=== PATIENT | male | born 1980 | race Caucasian/White ===

== ENCOUNTER 2016-11-17 11:55 | Outpatient (CLI) | payer MEDICARE, OTHER ==
[~2016-11-17 11:55] MED LIST: BACLOFEN10 MG ORAL; CEPHALEXIN500 MG ORAL; CIPRO250 MG ORAL; METHADONE H5 MG/5 M1 PO; METHADONE HCL10 MG PO; MS CONTIN100 MG ORAL; OXYBUTYNIN CHLO10 MG PO; OXYBUTYNIN CHLO15 MG PO
== END 2016-11-17 13:55 | disposition home or self-care (01) ==
LOC: CAR 11:55
DX: I49.9 Cardiac arrhythmia, unspecified (principal)
CPT/HCPCS: 93005

== ENCOUNTER 2017-12-29 12:36 | Outpatient (CLI) | payer MEDICARE, OTHER ==
--- NOTE | 2017-12-29 17:11 | Cardiology Report ---
APPROVED REPORT EKG Measurement Heart [id number] Normal sinus rhythm Normal ECG
== END 2017-12-29 14:36 | disposition home or self-care (01) ==
LOC: CAR 12:36
DX: G82.20 Paraplegia, unspecified (principal); R25.2 Cramp and spasm
CPT/HCPCS: 93005

== ENCOUNTER 2018-01-01 05:55 | Emergency (ER) | payer MEDICARE, OTHER ==
[~2018-01-01] VITALS: Ht 162.6 cm; Wt 99.8 kg
[2018-01-01 06:16] VITALS: BP 135/88
--- NOTE | 2018-01-01 06:29 | Emergency Room Report ---
History of Present Illness General Chief Complaint: Multiple Trauma/Fall Source: Patient Present Illness HPI Patient 37-year-old male presented after fall out of his wheelchair. Patient denied loss of consciousness. He reports having a prior history of incomplete T10 paraplegia. The patient stated he felt a pop to the left lower extremity. The patient intermittently self caths. He denies any headache.The patient is normally unable to move his left lower extremity and is wheelchair-bound. Allergies: Coded Allergies: ACETAMINOPHEN (Verified Allergy, Unknown, 01/26/16) HYDROCODONE (Verified Allergy, Unknown, 01/26/16) Patient History Past Medical History: see triage record Reviewed Nursing Documentation: PMH: Agreed; PSxH: Agreed Nursing Documentation-PMH Hx Hypertension: Yes Hx Cancer: No Hx Neurological Problems: Yes - T 12- PARAPLEGIC SINCE 2002 Review of Systems All Other Systems: negative except mentioned in HPI Physical Exam Vital Signs Date Time Temp Pulse Resp B/P (MAP) Pulse Ox O2 Delivery O2 Flow Rate FiO2 01/01/18 06:01 98.1 83 16 135/88 97 Room Air General Appearance: alert, GCS 15, obese, Chronically Ill ENT: normal ENT inspection, hearing grossly normal Neck: normal inspection, full range of motion, supple Respiratory: normal inspection, chest non-tender, lungs clear Cardiovascular #1: normal inspection Gastrointestinal: non tender, soft Musculoskeletal: decreased range of mation Neurologic: alert, oriented x3, responsive, paper cone grader III-XII nml as tested, motor weakness - bilateral lower extremity Psychiatric: normal inspection Skin: other - left leg anterior skin lesion, no bruising Medical Decision Making Diagnostic Impression: Primary Impression: Tibia/fibula fracture ER Course Patient presented for right leg pain. Differential diagnosis included but was not limited to fracture, dislocation, vascular injury among others. Xray imaging showed a comminuted left ankle fracture. Patient was placed in a splint. Patient was vascularly intact after splinting. Patient was advised to keep leg elevated. He was advised to follow up with Orthopedics as soon as possible. Last Vital Signs Date Time Temp Pulse Resp B/P (MAP) Pulse Ox O2 Delivery O2 Flow Rate FiO2 01/01/18 06:16 83 16 Room Air 01/01/18 06:16 98.0 135/88 97 Status: improved Disposition: HOME, SELF-CARE Condition: Stable Scripts Cephalexin* (KEFLEX*) 500 Mg Capsule 500 MG ORAL EVERY 6 HOURS, #28 CAP Prov: Richard Mata MD 01/01/18 Ibuprofen* (MOTRIN*) 600 Mg Tablet 600 MG ORAL THREE TIMES A DAY, #30 TAB 0 Refills Prov: Richard Mata MD 01/01/18 Referrals: Karri Laird MD (PCP) Richard Mata MD Jan 01, 2018 06:29
[2018-01-01] MEDS ORDERED: IBUPROFEN600 MG ORAL (08:53)
[2018-01-01] MEDS ORDERED: CEPHALEXIN500 MG ORAL (08:53)
[2018-01-01 09:08] VITALS: BP 129/83
[2018-01-01 09:10] VITALS: BP 129/83
--- NOTE | 2018-01-01 13:03 | Diagnostic Imaging Report ---
Indication: Foot pain Technique: 3 views left foot Comparison: none Findings: No acute foot fractures. There is a fracture of the distal tibia and fibula noted on the lateral view. No dislocations. There is degenerative change of the first metatarsophalangeal joint. Impression: No evidence of foot fracture Positive for distal tibial and fibular fracture-see separate ankle report
--- NOTE | 2018-01-01 13:46 | Diagnostic Imaging Report ---
Indication: Ankle pain Technique: 3 views of the left ankle Comparison: none Findings: There is a severely comminuted fracture of the distal tibia, with approximately 1 cm posterior displacement, several centimeters of override. There is an associated severely comminuted fracture of the distal fibula. It is uncertain whether the tibial fracture involves the articular surface.. No dislocations Impression: Positive for distal fibular and tibial fractures
--- NOTE | 2018-01-01 13:47 | Diagnostic Imaging Report ---
Indication: Reason For Exam: PAIN Technique: 2 views of the left tibia and fibula Comparison: 03/01/2009 Findings: Surgical hardware is again seen reducing old healed proximal tibial fracture. There is a severely comminuted fracture of the distal tibia. There is a severely comminuted fracture of the distal fibula. Impression: Positive for comminuted distal tibial and fibular fractures Evidence of old healed injury and postsurgical change
== END 2018-01-01 09:12 | disposition home or self-care (01) ==
LOC: EMR 06:21
DX: S82.252A Displaced comminuted fracture of shaft of left tibia, initial encounter for closed fracture (principal); S82.452A Displaced comminuted fracture of shaft of left fibula, initial encounter for closed fracture; W05.0XXA Fall from non-moving wheelchair, initial encounter; Y92.009 Unspecified place in unspecified non-institutional (private) residence as the place of occurrence of the external cause; Z88.6 Allergy status to analgesic agent; I10 Essential (primary) hypertension; G82.20 Paraplegia, unspecified
CPT/HCPCS: 99284

== ENCOUNTER 2018-02-28 22:38 | Emergency (ER) | payer MEDICARE, OTHER ==
[~2018-02-28] VITALS: Ht 162.6 cm; Wt 104.3 kg
[~2018-02-28 22:38] MED LIST changes: +IBUPROFEN600 MG ORAL
[2018-02-28 23:07] VITALS: BP 121/76
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
[2018-02-28] MEDS ORDERED: cefTRIAXone 1 GM in NS 55 ML IVPB ONE (23:15)
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
--- NOTE | 2018-02-28 23:18 | NUR ---
ED Nurse Note: Blood and urine sample collected and sent to lab.
--- NOTE | 2018-02-28 23:19 | NUR ---
ED Nurse Note: Meds given as ordered.
[2018-02-28 23:48] LABS: BILIRUBIN, URINE NEGATIVE (NEGATIVE); GLUCOSE, URINE (UA) NEGATIVE (NEGATIVE); KETONES,URINE NEGATIVE (NEGATIVE); LEUKOCYTE ESTERASE ,URINE 3+ (NEGATIVE); NITRITE,URINE POSITIVE (NEGATIVE); PH,URINE 6.5 (4.5-8.0); PROTEIN,URINE 1+ (NEGATIVE); UROBILINOGEN,URINE 4 MG/DL (0.0-1.0)
[2018-02-28 23:52] LABS: APPEARANCE,URINE CLOUDY; COLOR,URINE YELLOW
[2018-02-28 23:58] LABS: BASOPHILS % (AUTO) 0.7 % (0.0-2.0); EOSINOPHILS % (AUTO) 3.4 % (0.0-3.0); HEMATOCRIT 28.3 % (42.0-52.0); HEMOGLOBIN 9.1 G/DL (14.2-18.0); LYMPHOCYTES % (AUTO) 16.5 % (20.0-45.0); MEAN CORPUSCULAR VOLUME 76 FL (80-99); MONOCYTES % (AUTO) 5.4 % (1.0-10.0); PLATELET COUNT 293 K/UL (150-450); RED BLOOD COUNT 3.72 M/UL (4.70-6.10); RED CELL DISTRIBUTION WIDTH 15.7 % (11.6-14.8)
[2018-03-01 00:09] LABS: ANION GAP 10 mmol/L (5-15); BLOOD UREA NITROGEN 6 mg/dL (7-18); CALCIUM 8.9 MG/DL (8.5-10.1); CARBON DIOXIDE 32 MMOL/L (21-32); CHLORIDE 94 MMOL/L (98-107); CREATININE 0.8 MG/DL (0.55-1.30); SODIUM 135 MMOL/L (136-145)
[2018-03-01 00:14] LABS: POTASSIUM 2.7 MMOL/L (3.5-5.1)
[2018-03-01] MEDS ORDERED: PERCOCET 5-3251 EACH ORAL (00:28)
[2018-03-01] MEDS ORDERED: LEVAQUIN500 MG ORAL (00:28)
[2018-03-01] MEDS ORDERED: Morphine Sulfate 4mg/ml Inj (IV USE ONLY) IVP ONE (00:30)
[2018-03-01 01:05] VITALS: BP 123/73
--- NOTE | 2018-03-01 01:05 | NUR ---
ED Nurse Note: Pt has seen by Dr. Saldivar, all orders carried out. D/c instruction and prescription given to Pt and verbalized understanding. IV/ID band removed. Pt d/c from ED with steady gait, accompanied by his family and with his wheelchair.
== END 2018-03-01 01:05 | disposition home or self-care (01) ==
LOC: EMR 23:19
DX: N39.0 Urinary tract infection, site not specified (principal); B96.89 Other specified bacterial agents as the cause of diseases classified elsewhere; D64.9 Anemia, unspecified; E87.6 Hypokalemia; R80.9 Proteinuria, unspecified; G82.20 Paraplegia, unspecified
CPT/HCPCS: 36415; 80048; 81001; 85025; 87086; 87181; 96365; 96375; 99284; J0696; J2270; 96361; 96374; J8499

== ENCOUNTER 2018-03-08 11:17 | Outpatient (RCR) | payer MEDICARE, OTHER ==
[~2018-03-08] VITALS: Ht 162.6 cm; Wt 104.3 kg
[~2018-03-08 11:17] MED LIST changes: +LEVAQUIN500 MG ORAL; +PERCOCET 5-3251 EACH ORAL
== END 2018-03-11 | disposition home or self-care (01) ==
LOC: WCC 11:17
DX: L89.324 Pressure ulcer of left buttock, stage 4 (principal); L89.623 Pressure ulcer of left heel, stage 3; L97.529 Non-pressure chronic ulcer of other part of left foot with unspecified severity; L97.513 Non-pressure chronic ulcer of other part of right foot with necrosis of muscle; L89.510 Pressure ulcer of right ankle, unstageable; L03.116 Cellulitis of left lower limb; G82.20 Paraplegia, unspecified; Z90.81 Acquired absence of spleen; F17.200 Nicotine dependence, unspecified, uncomplicated
CPT/HCPCS: 11043; 11046

== ENCOUNTER 2018-12-21 13:10 | Inpatient (IN) | payer MEDICARE, OTHER ==
[2018-12-21] VITALS (13 sets, daily range): BP systolic 82–115; BP diastolic 45–73
[~2018-12-21] VITALS: Ht 167.6 cm; Wt 78.3 kg
[2018-12-21] MEDS ORDERED: Naloxone 1mg/ml 2ml ONE (13:13)
[2018-12-21] MEDS ORDERED: Vancomycin 1.5 GM in NS 275 ML IVPB ONE (13:30)
[2018-12-21] MEDS ORDERED: Cefepime HCl 2 GM in NS 110 ML IV SCH (13:30)
[2018-12-21] MEDS ORDERED: GABAPENTIN300 MG ORAL (13:34)
[2018-12-21] MEDS ORDERED: MEGESTROL400 MG/11 PO (13:34)
[2018-12-21] MEDS ORDERED: MAGNESIUM400 M1 PO (13:34)
[2018-12-21] MEDS ORDERED: ASCORBIC ACID500 MG ORAL (13:34)
[2018-12-21] MEDS ORDERED: RISPERDAL1 MG PO (13:34)
[2018-12-21] MEDS ORDERED: MIRTAZAPINE15 M3 ORAL (13:34)
[2018-12-21] MEDS ORDERED: ATIVAN1 MG ORAL (13:34)
[2018-12-21] MEDS ORDERED: TRAMADOL HCL50 MG ORAL (13:34)
[2018-12-21] MEDS ORDERED: VITAMIN B-1100 MG ORAL (13:34)
[2018-12-21] MEDS ORDERED: ZOFRAN4 M3 ORAL (13:34)
[2018-12-21] MEDS ORDERED: FAMOTIDINE20 MG ORAL (13:34)
[2018-12-21] MEDS ORDERED: ACIDOPHILUS-PE1 EAC1 PO (13:34)
[2018-12-21] MEDS ORDERED: MULTIVITAMINS1 EAC8 ORAL (13:34)
[2018-12-21] MEDS ORDERED: ZOLPIDEM TARTRAT5 MG ORAL (13:42)
[2018-12-21] MEDS ORDERED: TYLENOL EXTRA500 MG ORAL (13:42)
[2018-12-21 14:01] LABS: BASOPHILS % (AUTO) 0.6 % (0.0-2.0); EOSINOPHILS % (AUTO) 0.1 % (0.0-3.0); HEMOGLOBIN 14.5 G/DL (14.2-18.0); LYMPHOCYTES % (AUTO) 7.4 % (20.0-45.0); MEAN CORPUSCULAR VOLUME 91 FL (80-99); MONOCYTES % (AUTO) 7.4 % (1.0-10.0); NEUTROPHILS % (AUTO) 84.5 % (45.0-75.0); PLATELET COUNT 412 K/UL (150-450); RED BLOOD COUNT 5.15 M/UL (4.70-6.10); RED CELL DISTRIBUTION WIDTH 14.6 % (11.6-14.8); WHITE BLOOD COUNT 15.8 K/UL (4.8-10.8)
[2018-12-21 14:02] LABS: APPEARANCE,URINE SLIGHTLY CLOUDY; BILIRUBIN, URINE NEGATIVE (NEGATIVE); GLUCOSE, URINE (UA) NEGATIVE (NEGATIVE); KETONES,URINE 1+ (NEGATIVE); LEUKOCYTE ESTERASE ,URINE 3+ (NEGATIVE); NITRITE,URINE NEGATIVE (NEGATIVE); PH,URINE 5 (4.5-8.0); PROTEIN,URINE 3+ (NEGATIVE); UROBILINOGEN,URINE 1 MG/DL (0.0-1.0)
[2018-12-21 14:08] LABS: COLOR,URINE RED
[2018-12-21] MEDS ORDERED: Lidocaine 1% MPF 10mg/ml 5ml ONE ×2 (14:14→14:24)
[2018-12-21 14:15] LABS: INR 1.1 (0.9-1.1)
[2018-12-21 14:17] LABS: ANION GAP 14 mmol/L (5-15); BLOOD UREA NITROGEN 36 mg/dL (7-18); CALCIUM 10.1 MG/DL (8.5-10.1); CARBON DIOXIDE 16 MMOL/L (21-32); CHLORIDE 107 MMOL/L (98-107); CREATININE 1.2 MG/DL (0.55-1.30); SODIUM 137 MMOL/L (136-145)
[2018-12-21 14:30] LABS: ALANINE AMINOTRANSFERASE 17 U/L (12-78); ALBUMIN 1.9 G/DL (3.4-5.0); ALBUMIN/GLOBULIN RATIO 0.3 (1.0-2.7); ALKALINE PHOSPHATASE 199 U/L (46-116); ASPARTATE AMINO TRANSFERASE 25 U/L (15-37); BILIRUBIN,TOTAL 1.2 MG/DL (0.2-1.0); CKMB 1.7 NG/ML (0.0-3.6); CREATINE KINASE 36 U/L (26-308); PHOSPHORUS 7.6 MG/DL (2.5-4.9)
[2018-12-21] MEDS ORDERED: Naloxone 1mg/ml 2ml IVP ONE (14:30)
--- NOTE | 2018-12-21 14:42 | Diagnostic Imaging Report ---
Indication: Dyspnea Comparison: 02/07/2009 A single view chest radiograph was obtained. Findings: Lung volumes are low. There is evidence of mild bilateral lower lobe atelectasis. Endotracheal tube is 3 cm above the araseli in good position. Heart size is normal. IMPRESSION: Basal atelectasis. Endotracheal tube in good position
[2018-12-21] MEDS ORDERED: Heparin1,000 units/500ml Premix(Conc:2 units/ml) IV ONE (14:45)
[2018-12-21] MEDS ORDERED: Lidocaine 1% Plain 30 ml INJ ONE (14:45)
[2018-12-21 14:52] LABS: BILIRUBIN,DIRECT 0.8 MG/DL (0.0-0.3)
--- NOTE | 2018-12-21 15:10 | Emergency Room Report ---
History of Present Illness General Chief Complaint: Altered Mental Status Source: Family Member, EMS Present Illness HPI Patient is a 38-year-old male presented after syncopal episode. Patient was brought in by EMS. He had a syncopal episode while attempted to have a bowel movement. He had noted to be decreased responsive since the episode. He had been noted to have fever. He had prior history of chronic indwelling Dye as well as T10 paraplegia. Patient had been unresponsive on initial evaluation. He was noted to be full code. He had prior history of chronic decubitus ulcer to his sacral area. He had been receiving treatment at this facility. Prior lengthy hospitalization at [facility] which she had some myocardial injury. He had previous tracheostomy.History is limited by patient's altered mental status. Allergies: Coded Allergies: ACETAMINOPHEN (Verified Allergy, Unknown, 01/26/16) HYDROCODONE (Verified Allergy, Unknown, 01/26/16) Patient History Limited by: medical condition Past Medical History: see triage record PMH Narrative T10 paraplegia decubitus ulcer chronic urinary tract infection sepsis myocardial injury due to sepsis. Social History: Reports: smoking Reviewed Nursing Documentation: PMH: Agreed; PSxH: Agreed Nursing Documentation-PMH Past Medical History: No History, Except For Hx Hypertension: Yes Hx Cancer: No Hx Gastrointestinal Problems: Yes - Spleen removel History Of Psychiatric Problem: Yes - anxiety Hx Neurological Problems: Yes - T 12- PARAPLEGIC SINCE 2002 Hx Seizures: Yes Review of Systems All Other Systems: limited - by mental status and acuity Physical Exam Vital Signs Date Time Temp Pulse Resp B/P (MAP) Pulse Ox O2 Delivery O2 Flow Rate FiO2 12/21/18 12:59 98.8 136 19 90/61 (71) 97 Room Air 12/21/18 13:15 50 General Appearance: severe distress, lethargic, Chronically Ill Head: normocephalic Eyes: bilateral eye other - Pupils 3 mm bilaterally ENT: dry mucus membranes Neck: limited range of motion, other - Tracheostomy scar Respiratory: chest non-tender, lungs clear, normal breath sounds Cardiovascular #1: normal inspection Gastrointestinal: normal inspection, non tender, soft Musculoskeletal: other - Motor weakness bilateral lower extremities Neurologic: other - Somnolent moves right upper extremity Skin: other - ulcer Procedures Critical Care Time Critical Care Time Patient had a critical medical condition which untreated could potentially result in life or limb threatening injury. Total critical care time excluding procedures approximately 45 minutes. Intubation Intubation : Consent: Emergent Intubation Method: orotracheal Tube Size (cm): 7.0 Medications: Etomidate Breath Sounds after Intubation: equal Intubation Complications: no complications Post Intubation Xray: Yes Attempts: Other - two Patient Tolerated: Well Complications: None Progress Mac 4 blade, initially difficulty with epiglottis blocking vollecula. Cords visualized well and ETT secured at 22cm 7-0 Medical Decision Making Diagnostic Impression: Primary Impression: Acute respiratory failure Additional Impressions: Paraplegia Urinary tract bacterial infections Severe sepsis Decubitus ulcer ER Course Patient presented for acute onset of syncope and altered mental status. Some evidence of acute febrile illness suggestive of urinary tract infection. Differential diagnosis include was not limited to sepsis, pneumonia, intracranial hemorrhage, among others. Because of complexity of patient's case laboratory tests and imaging studies were ordered. Patient was noted to have initially altered mental status. Patient was given IV fluids as well as IV antibiotics. Patient's Dye catheter was noted to be containing very cloudy urine initially. This was changed. A central venous catheter was attempted without any success. Patient was noted to continue to be hypotensive and was started on IV fluids as well as IV antibiotics. Radiology was contacted for PICC line placement. Dr. Maximo Awad was contacted for inpatient management due to covering physician for Dr. Storm. Dr. Awad agreed to accept the patient. Labs Test 12/21/18 13:40 12/21/18 14:45 White Blood Count 15.8 K/UL (4.8-10.8) Red Blood Count 5.15 M/UL (4.70-6.10) Hemoglobin 14.5 G/DL (14.2-18.0) Hematocrit 47.0 % (42.0-52.0) Mean Corpuscular Volume 91 FL (80-99) Mean Corpuscular Hemoglobin 28.1 PG (27.0-31.0) Mean Corpuscular Hemoglobin Concent 30.8 G/DL (32.0-36.0) Red Cell Distribution Width 14.6 % (11.6-14.8) Platelet Count 412 K/UL (150-450) Mean Platelet Volume 5.1 FL (6.5-10.1) Neutrophils (%) (Auto) 84.5 % (45.0-75.0) Lymphocytes (%) (Auto) 7.4 % (20.0-45.0) Monocytes (%) (Auto) 7.4 % (1.0-10.0) Eosinophils (%) (Auto) 0.1 % (0.0-3.0) Basophils (%) (Auto) 0.6 % (0.0-2.0) Prothrombin Time 11.4 SEC (9.30-11.50) Prothromb Time International Ratio 1.1 (0.9-1.1) Activated Partial Thromboplast Time 27 SEC (23-33) Urine Color Red Urine Appearance Slightly cloudy Urine pH 5 (4.5-8.0) Urine Specific [place] 1.010 (1.005-1.035) Urine Protein 3+ (NEGATIVE) Urine Glucose (UA) Negative (NEGATIVE) Urine Ketones 1+ (NEGATIVE) Urine Blood 5+ (NEGATIVE) Urine Nitrite Negative (NEGATIVE) Urine Bilirubin Negative (NEGATIVE) Urine Urobilinogen 1 MG/DL (0.0-1.0) Urine Leukocyte Esterase 3+ (NEGATIVE) Urine RBC Tntc /HPF (0 - 0) Urine WBC 30-40 /HPF (0 - 0) Urine Squamous Epithelial Cells Occasional /LPF Urine Bacteria Occasional /HPF (NONE) Sodium Level 137 MMOL/L (136-145) Potassium Level 4.0 MMOL/L (3.5-5.1) Chloride Level 107 MMOL/L (98-107) Carbon Dioxide Level 16 MMOL/L (21-32) Anion Gap 14 mmol/L (5-15) Blood Urea Nitrogen 36 mg/dL (7-18) Creatinine 1.2 MG/DL (0.55-1.30) Estimat Glomerular Filtration Rate > 60 mL/min (>60) Glucose Level 133 MG/DL (74-106) Calcium Level 10.1 MG/DL (8.5-10.1) Phosphorus Level 7.6 MG/DL (2.5-4.9) Magnesium Level 3.2 MG/DL (1.8-2.4) Total Bilirubin 1.2 MG/DL (0.2-1.0) Direct Bilirubin 0.8 MG/DL (0.0-0.3) Aspartate Amino Transf (AST/SGOT) 25 U/L (15-37) Alanine Aminotransferase (ALT/SGPT) 17 U/L (12-78) Alkaline Phosphatase 199 U/L (46-116) Total Creatine Kinase 36 U/L (26-308) Creatine Kinase MB 1.7 NG/ML (0.0-3.6) Creatine Kinase MB Relative Index 4.7 Troponin I 0.000 ng/mL (0.000-0.056) Pro-B-Type Natriuretic Peptide 257 pg/mL (0-125) Total Protein 7.6 G/DL (6.4-8.2) Albumin 1.9 G/DL (3.4-5.0) Globulin 5.7 g/dL Albumin/Globulin Ratio 0.3 (1.0-2.7) EKG Diagnostic Results Rate: normal Rhythm: NSR ST Segments: no acute changes Rhythm Strip Diag. Results EP Interpretation: yes Rhythm: no PVC's, no ectopy, other - Sinus tachycardia Chest X-Ray Diagnostic Results Chest X-Ray Diagnostic Results : Chest X-Ray Ordered: Yes # of Views/Limited/Complete: 1 View Indication: Shortness of Breath EP Interpretation: No Interpretation: no consolidation, no effusion, no pneumothorax, no acute cardiopulmonary disease Impression: No acute disease Electronically Signed by: Electronically signed by Dr. Richard Mata M.D. Last Vital Signs Date Time Temp Pulse Resp B/P (MAP) Pulse Ox O2 Delivery O2 Flow Rate FiO2 12/21/18 14:48 121 23 50 12/21/18 14:08 100.6 82/65 100 Non-Rebreather Status: unchanged Disposition: ADMITTED INPATIENT Condition: Critical Referrals: NON PHYSICIAN (PCP) Richard Mata MD Dec 21, 2018 15:10
[2018-12-21] MEDS ORDERED: Albuterol/Ipratropium 3ml neb HHN PRN (16:00)
[2018-12-21] MEDS ORDERED: Miralax 17gm pkt ORAL PRN (16:00)
--- NOTE | 2018-12-21 16:48 | Diagnostic Imaging Report ---
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 The left upper extremity was prepped with alcohol. All elements of maximal sterile barrier technique were followed including usage of a cap, mask, sterile gown, sterile gloves, hand hygiene and a large sterile sheet. Sonographic evaluation of the upper extremity was performed demonstrating a patent and compressible brachial vein. Access was obtained under real-time ultrasound guidance (with utilization of sterile gel and sterile probe cover) and digital image was saved and archived. An .018 wire was introduced. Needle exchanged for a 5 [place] peel-away sheath. Measurements were obtained. A 5 [place] dual-lumen Power PICC line catheter was cut to 40 cm and introduced over the wire. Peel-away sheath and wire were removed.Catheter was secured to the skin using 2-0 Prolene suture. Both ports aspirate and flush easily. Post procedure chest x-ray demonstrates good position of the PICC line catheter within the right atrium. Impression: Successful placement of an upper extremity PICC line catheter
--- NOTE | 2018-12-21 17:10 | Diagnostic Imaging Report ---
Indication: Headache Technique: Contiguous 5 mm thick transaxial imaging of the head obtained in a Siemens Sensation [address] scanner. Soft tissue and bone windows generated. Automatic Exposure Control was utilized. Total Dose length Product (DLP): [address] Dose Index Volume (CTDIvol): 62.7 mGy Comparison: none Findings: There is mild prominence of the ventricles, basal cisterns, and cerebral sulci consistent with atrophy. Mild, nonspecific, white matter hypoattenuation is noted throughout the brain consistent with chronic small vessel disease. There is no midline shift, edema, acute hemorrhage, mass effect, or abnormal extra-axial fluid collections. Bones are unremarkable. Impression: No acute intracranial bleed, mass effect or edema. Mild atrophy of the brain. Nonspecific white matter hypoattenuation probably due to chronic small vessel disease. The CT scanner at [facility] is accredited by the [employer] and the scans are performed using dose optimization techniques as appropriate to a performed exam including Automatic Exposure control.
[2018-12-21] MEDS ORDERED: Amikacin Rx to dose MISC PRN (19:15)
[2018-12-21] MEDS: Ertapenem 1 GM in NS 55 ML IV SCH (20:00)
[2018-12-21] MEDS: Dyna-Hex 2% Top Sol 2oz TOPIC SCH (20:00)
[2018-12-21] MEDS ORDERED: Dyna-Hex 2% Top Sol 2oz TOPIC SCH (20:00)
[2018-12-21] MEDS: Amikacin 1,200 MG in NS 275 ML IV SCH (20:40)
[2018-12-21] MEDS: Heparin 5000 units/ml inj SUBQ SCH (20:41)
[2018-12-21] MEDS ORDERED: Vancomycin 1 GM in D5W 275 ML IV SCH (23:45)
[2018-12-22] VITALS (50 sets, daily range): BP systolic 79–135; BP diastolic 40–97
[2018-12-22] MEDS: Vancomycin 1.25gm/NS Premix IVPB SCH ×2 (03:09→14:52)
[2018-12-22] MEDS: LORazepam Inj 2mg/ml 1ml IV PRN ×6 (03:09→22:12)
[2018-12-22 06:26] LABS: BASOPHILS % (AUTO) 0.6 % (0.0-2.0); EOSINOPHILS % (AUTO) 1.2 % (0.0-3.0); HEMATOCRIT 32.8 % (42.0-52.0); HEMOGLOBIN 10.2 G/DL (14.2-18.0); LYMPHOCYTES % (AUTO) 7.8 % (20.0-45.0); MEAN CORPUSCULAR VOLUME 91 FL (80-99); MONOCYTES % (AUTO) 7.7 % (1.0-10.0); NEUTROPHILS % (AUTO) 82.7 % (45.0-75.0); PLATELET COUNT 314 K/UL (150-450); RED BLOOD COUNT 3.62 M/UL (4.70-6.10); RED CELL DISTRIBUTION WIDTH 14.4 % (11.6-14.8); WHITE BLOOD COUNT 14.4 K/UL (4.8-10.8)
[2018-12-22] MEDS ORDERED: Rocuronium Bromide 50mg/5ml Inj IV ONE (06:36)
[2018-12-22] MEDS ORDERED: Etomidate 40mg/20ml Inj IV ONE (06:36)
[2018-12-22 07:43] LABS: ALANINE AMINOTRANSFERASE 13 U/L (12-78); ALBUMIN 1.4 G/DL (3.4-5.0); ALBUMIN/GLOBULIN RATIO 0.3 (1.0-2.7); ALKALINE PHOSPHATASE 132 U/L (46-116); ANION GAP 15 mmol/L (5-15); ASPARTATE AMINO TRANSFERASE 22 U/L (15-37); BILIRUBIN,DIRECT 0.7 MG/DL (0.0-0.3); BLOOD UREA NITROGEN 29 mg/dL (7-18); CALCIUM 8.3 MG/DL (8.5-10.1); CARBON DIOXIDE 12 MMOL/L (21-32); CHLORIDE 122 MMOL/L (98-107); CREATININE 0.8 MG/DL (0.55-1.30); SODIUM 149 MMOL/L (136-145)
[2018-12-22 07:49] LABS: POTASSIUM 2.5 MMOL/L (3.5-5.1)
[2018-12-22] MEDS: Heparin 5000 units/ml inj SUBQ SCH ×2 (09:00→21:00)
[2018-12-22] MEDS: Pantoprazole Inj IVP SCH (09:02)
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
--- NOTE | 2018-12-22 11:50 | Diagnostic Imaging Report ---
Indication: Dyspnea Comparison: 12/21/2018 A single view chest radiograph was obtained. Findings: Bilateral lower lobe the atelectasis demonstrated with lung volumes that remain low. A left PICC line is been placed. The tip is projected over the right atrium. Endotracheal tube remains satisfactory in position. IMPRESSION: PICC line in good position
[2018-12-22] MEDS: D5 1/2NS 1,000 ML IV SCH ×2 (11:56→21:00)
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
--- NOTE | 2018-12-22 13:18 | Diagnostic Imaging Report ---
Indication: Abdominal pain Technique: Grayscale and duplex Doppler imaging of the abdomen performed. Comparison: None Findings: Study is very limited due to bowel gas. Patient is also unstable in a cooperative. There is a questionable stone within the gallbladder. Sonographic Duran's is negative. There is no pericholecystic fluid or wall thickening. The spleen is enlarged measuring about 13-14 cm. There is no hydronephrosis identified. There is no obvious ascites. The aorta, pancreas, IVC mostly obscured. The liver is largely obscured but that is visualized appears grossly unremarkable. IMPRESSION: Very limited evaluation. Mild splenomegaly. Question of gallstones.
--- NOTE | 2018-12-22 14:28 | Diagnostic Imaging Report ---
Indication: Abdominal pain Comparison: None Single view of the abdomen obtained Findings: Bowel gas pattern is nonspecific. NG tube is present in good position. No mass, ectopic calcifications, or abnormal gas collections are identified. The bones are unremarkable. Impression: No acute findings
[2018-12-22] MEDS ORDERED: NS 275ml ONE (16:03)
[2018-12-22] MEDS ORDERED: Tubing IV Secondary IV ONE (16:03)
--- NOTE | 2018-12-22 16:04 | Cardiology Report ---
APPROVED REPORT EXAM: Two-dimensional and M-mode echocardiogram with Doppler and color Doppler. INDICATION LV FUNCTION M-Mode DIMENSIONS IVSd0.8 (0.7-1.1cm)Left Atrium (MM)3.0 (1.6-4.0cm) LVDd4.0 (3.5-5.6cm)Aortic Root3.5 (2.0-3.7cm) PWd0.8 (0.7-1.1cm)Aortic Cusp Exc.1.8 (1.5-2.0cm) IVSs1.0 cm LVDs2.8 (2.5-4.0cm) PWs0.6 cm Normal left ventricular chamber size, systolic function and wall motion. Left ventricular ejection fraction estimated to be 60-65 %. No evidence of left ventricular hypertrophy . No evidence of pericardial effusion. All other cardiac chamber sizes are within normal limits. Focal aortic valve sclerosis with adequate cusp excursion. Thickened mitral valve leaflets with normal excursion. Mitral annulus and aortic root calcification. Normal pulmonic valve structure. Normal tricuspid valve structure. IVC at normal size with physiologic collapse. A color flow and spectral Doppler study was performed and revealed: No aortic regurgitation.. Trace mitral regurgitation. Mitral inflow indicates normal left ventricular diastolic function Mild tricuspid regurgitation. Tricuspid systolic velocities suggests peak right ventricular systolic pressure of 27mmHg.
--- NOTE | 2018-12-22 19:21 | History & Physical ---
History and Physical History & Physicial Dictated for Int Med-Dr Awad no. [id number]. Jama Moreau MD Dec 22, 2018 19:21
[2018-12-22] MEDS: Ertapenem 1 GM in NS 55 ML IV SCH (20:00)
[2018-12-22] MEDS: Dyna-Hex 2% Top Sol 2oz TOPIC SCH (20:00)
[2018-12-22] MEDS: Amikacin 1,200 MG in NS 275 ML IV SCH (21:00)
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
[2018-12-23] VITALS (55 sets, daily range): BP systolic 82–145; BP diastolic 43–95
[2018-12-23] MEDS: LORazepam Inj 2mg/ml 1ml IV PRN ×3 (03:54→23:37)
[2018-12-23 04:34] LABS: BASOPHILS % (AUTO) 0.4 % (0.0-2.0); HEMATOCRIT 27.8 % (42.0-52.0); HEMOGLOBIN 8.9 G/DL (14.2-18.0); LYMPHOCYTES % (AUTO) 10.7 % (20.0-45.0); MEAN CORPUSCULAR VOLUME 89 FL (80-99); MONOCYTES % (AUTO) 7.6 % (1.0-10.0); NEUTROPHILS % (AUTO) 79.4 % (45.0-75.0); PLATELET COUNT 290 K/UL (150-450); RED BLOOD COUNT 3.12 M/UL (4.70-6.10); RED CELL DISTRIBUTION WIDTH 14.2 % (11.6-14.8); WHITE BLOOD COUNT 13.3 K/UL (4.8-10.8)
[2018-12-23 04:42] LABS: CREATINE KINASE 27 U/L (26-308); GAMMA GLUTAMYL TRANSPEPTIDASE 126 U/L (5-85)
[2018-12-23 04:46] LABS: IRON 33 ug/dL (50-175); TOTAL IRON BINDING CAPACITY 93 ug/dL (250-450)
[2018-12-23 04:50] LABS: % IRON SATURATION 35 % (15-50)
[2018-12-23 04:51] LABS: ALANINE AMINOTRANSFERASE 11 U/L (12-78); ALBUMIN 1.3 G/DL (3.4-5.0); ALBUMIN/GLOBULIN RATIO 0.3 (1.0-2.7); ALKALINE PHOSPHATASE 112 U/L (46-116); ANION GAP 11 mmol/L (5-15); ASPARTATE AMINO TRANSFERASE 15 U/L (15-37); BILIRUBIN,TOTAL 0.4 MG/DL (0.2-1.0); BLOOD UREA NITROGEN 17 mg/dL (7-18); CALCIUM 8.8 MG/DL (8.5-10.1); CARBON DIOXIDE 15 MMOL/L (21-32); CHLORIDE 119 MMOL/L (98-107); CHOLESTEROL 76 MG/DL (< 200); CREATININE 0.8 MG/DL (0.55-1.30); FERRITIN 1205 NG/ML (8-388); HDL CHOLESTEROL 15 MG/DL (40-60); PHOSPHORUS 2.5 MG/DL (2.5-4.9); SODIUM 145 MMOL/L (136-145); TRIGLYCERIDES 69 MG/DL (30-150)
[2018-12-23 04:53] LABS: POTASSIUM 2.7 MMOL/L (3.5-5.1)
[2018-12-23] MEDS: D5 1/2NS 1,000 ML IV SCH ×2 (08:16→13:49)
[2018-12-23] MEDS: Pantoprazole Inj IVP SCH (09:16)
[2018-12-23] MEDS: Heparin 5000 units/ml inj SUBQ SCH ×2 (09:22→20:43)
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
[2018-12-23] MEDS: Hydrocortisone 100mg Inj IV SCH ×3 (11:23→20:41)
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
--- NOTE | 2018-12-23 12:40 | Diagnostic Imaging Report ---
Indication: Dyspnea Comparison: 12/22/2018 A single view chest radiograph was obtained. Findings: Tubes and lines are stable. Basilar atelectasis demonstrated. Lung volumes remain low. Heart size is stable. IMPRESSION: No change from the prior day
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
--- NOTE | 2018-12-23 16:48 | Internal Med Progress Note ---
Subjective Date of Service: Dec 23, 2018 Physician Name Jama Moreau Attending Physician Maximo Awad MD Current Medications Medications (Trade) Dose Ordered Sig/Thomas Route PRN Reason Start Time Stop Time Status Last Admin Dose Admin Albuterol/ Ipratropium (Albuterol/ Ipratropium) 3 ml Q4H PRN HHN Shortness of Breath 12/21/18 16:00 12/26/18 15:59 Amikacin Protocol (Amikacin pharmacy to dose) 1 ea DAILY PRN MISC PER RX PROTOCOL 12/21/18 19:15 01/20/19 19:14 Amikacin Sulfate 1200 mg/Sodium Chloride 279.8 ml @ 279.8 mls/ hr Q36H IV 12/24/18 09:00 12/31/18 08:59 Chlorhexidine Gluconate (Megan-Hex 2%) 1 applic DAILY@2000 TOPIC 12/21/18 20:00 01/20/19 19:59 12/22/18 20:00 Dextrose/Sodium Chloride 1,000 ml @ 50 mls/hr Q20H IV 12/23/18 12:33 01/22/19 12:32 12/23/18 13:49 Ertapenem 1 gm/ Sodium Chloride 55 ml @ 110 mls/hr Q24H IV 12/21/18 20:00 12/26/18 19:59 12/22/18 20:00 Fentanyl Citrate 1000 mcg/Sodium Chloride 100 ml @ 0 mls/hr Q24H IV 12/23/18 13:15 12/30/18 13:14 12/23/18 14:56 Heparin Sodium (Porcine) (Heparin 5000 units/ml) 5,000 units EVERY 12 HOURS SUBQ 12/21/18 21:00 01/20/19 20:59 12/23/18 09:22 Hydrocortisone (Solu-CORTEF) 100 mg EVERY 8 HOURS IV 12/23/18 09:45 12/24/18 22:01 12/23/18 14:54 Lorazepam (Ativan 2mg/ml 1ml) 2 mg Q2H PRN IV For Anxiety 12/21/18 16:00 12/28/18 15:59 12/23/18 09:16 Norepinephrine Bitartrate 4 mg/ Dextrose 250 ml @ 0 mls/hr Q24H IV 12/21/18 19:00 01/20/19 18:59 12/22/18 09:15 Ondansetron HCl (Zofran) 4 mg Q6H PRN IVP Nausea & Vomiting 12/21/18 16:00 01/20/19 15:59 Pantoprazole (Protonix) 40 mg DAILY IVP 12/22/18 09:00 01/21/19 08:59 12/23/18 09:16 Polyethylene Glycol (Miralax) 17 gm DAILYPRN PRN ORAL Constipation 12/21/18 16:00 01/20/19 15:59 Potassium Chloride 100 ml @ 50 mls/hr Q2H IVPB 12/23/18 09:00 12/23/18 18:59 12/23/18 16:38 Vancomycin HCl (Vanco rx to dose) 1 ea DAILY PRN MISC PER RX PROTOCOL 12/21/18 19:15 01/20/19 19:14 Allergies: Coded Allergies: ACETAMINOPHEN (Verified Allergy, Unknown, 01/26/16) HYDROCODONE (Verified Allergy, Unknown, 01/26/16) ROS Limited/Unobtainable: Yes Subjective 38 YO T-12 paraplegic admitted with respiratory failure. Now UTI and sepsis. Intubated and sedated. Cover for Int Med-DR Awad. ICU Objective Last Vital Signs Date Time Temp Pulse Resp B/P (MAP) Pulse Ox O2 Delivery O2 Flow Rate FiO2 12/23/18 15:22 137 29 30 12/23/18 14:56 Mechanical Ventilator 12/23/18 11:30 111/71 (84) 100 12/23/18 08:00 97.4 Laboratory Tests Test 12/23/18 02:00 12/23/18 04:00 12/23/18 09:35 Lactic Acid Level 0.40 mmol/L (0.4-2.0) Ammonia < 10 umol/L (11-32) L Vancomycin Level Trough 31.1 ug/mL (5.0-12.0) H White Blood Count 13.3 K/UL (4.8-10.8) H Red Blood Count 3.12 M/UL (4.70-6.10) L Hemoglobin 8.9 G/DL (14.2-18.0) L Hematocrit 27.8 % (42.0-52.0) L Mean Corpuscular Volume 89 FL (80-99) Mean Corpuscular Hemoglobin 28.4 PG (27.0-31.0) Mean Corpuscular Hemoglobin Concent 31.9 G/DL (32.0-36.0) L Red Cell Distribution Width 14.2 % (11.6-14.8) Platelet Count 290 K/UL (150-450) Mean Platelet Volume 5.3 FL (6.5-10.1) L Neutrophils (%) (Auto) 79.4 % (45.0-75.0) H Lymphocytes (%) (Auto) 10.7 % (20.0-45.0) L Monocytes (%) (Auto) 7.6 % (1.0-10.0) Eosinophils (%) (Auto) 2.0 % (0.0-3.0) Basophils (%) (Auto) 0.4 % (0.0-2.0) Sodium Level 145 MMOL/L (136-145) Potassium Level 2.7 MMOL/L (3.5-5.1) *L Chloride Level 119 MMOL/L (98-107) H Carbon Dioxide Level 15 MMOL/L (21-32) L Anion Gap 11 mmol/L (5-15) Blood Urea Nitrogen 17 mg/dL (7-18) Creatinine 0.8 MG/DL (0.55-1.30) Estimat Glomerular Filtration Rate > 60 mL/min (>60) Glucose Level 108 MG/DL (74-106) H Hemoglobin A1c 4.9 % (4.3-6.0) Uric Acid 4.4 MG/DL (2.6-7.2) Calcium Level 8.8 MG/DL (8.5-10.1) Phosphorus Level 2.5 MG/DL (2.5-4.9) Magnesium Level 1.8 MG/DL (1.8-2.4) Iron Level 33 ug/dL (50-175) L Total Iron Binding Capacity 93 ug/dL (250-450) L Percent Iron Saturation 35 % (15-50) Unsaturated Iron Binding 60 ug/dL (112-346) L Ferritin 1205 NG/ML (8-388) H Total Bilirubin 0.4 MG/DL (0.2-1.0) Gamma Glutamyl Transpeptidase 126 U/L (5-85) H Aspartate Amino Transf (AST/SGOT) 15 U/L (15-37) Alanine Aminotransferase (ALT/SGPT) 11 U/L (12-78) L Alkaline Phosphatase 112 U/L (46-116) Total Creatine Kinase 27 U/L (26-308) Troponin I 0.000 ng/mL (0.000-0.056) C-Reactive Protein, Quantitative 31.0 mg/dL (0.00-0.90) H Pro-B-Type Natriuretic Peptide 2487 pg/mL (0-125) H Total Protein 5.6 G/DL (6.4-8.2) L Albumin 1.3 G/DL (3.4-5.0) L Globulin 4.3 g/dL Albumin/Globulin Ratio 0.3 (1.0-2.7) L Triglycerides Level 69 MG/DL (30-150) Cholesterol Level 76 MG/DL (< 200) LDL Cholesterol 48 mg/dL (<100) HDL Cholesterol 15 MG/DL (40-60) L Cholesterol/HDL Ratio 5.1 (3.3-4.4) H Lipase 18 U/L (73-393) L Vitamin B12 Level 270 PG/ML (193-986) Folate 31.9 NG/ML (8.6-58.9) Thyroid Stimulating Hormone (TSH) 0.288 uiU/mL (0.358-3.740) Cortisol AM Sample 12.4 UG/DL Arterial Blood pH 7.317 (7.350-7.450) Arterial Blood Partial Pressure CO2 23.5 mmHg (35.0-45.0) *L Arterial Blood Partial Pressure O2 118.2 mmHg (75.0-100.0) H Arterial Blood HCO3 11.8 mmol/L (22.0-26.0) *L Arterial Blood Oxygen Saturation 96.3 % (95-100) Arterial Blood Base Excess -12.9 (-2-2) *L Gregory Test Positive Microbiology Date/Time Source Procedure Growth Status 12/21/18 13:55 Blood Blood Culture - Preliminary Gram Positive Cocci Resulted 12/21/18 13:40 Blood Blood Culture - Preliminary Gram Positive Cocci Resulted 12/22/18 16:55 Nose - Final Complete 12/22/18 16:55 Nose - Final Complete 12/21/18 13:50 Nasal Nares MRSA Culture - Final Staphylococcus Aureus - Mrsa Complete 12/21/18 17:57 Stool Clostridium difficile Toxin Assay - Final Complete 12/21/18 13:40 Urine,Clean Catch Urine Culture - Final Citrobacter Diversus Complete 12/21/18 13:50 Rectum - Final NO CARBAPENEM-RESISTANT ENTEROBACTERI... Complete 12/21/18 13:50 Sacral Ulcer Gram Stain - Final Resulted 12/21/18 13:50 Wound Culture - Preliminary Escherichia Coli Resulted 12/21/18 13:50 Hip Right Gram Stain - Final Resulted 12/21/18 13:50 Wound Culture - Preliminary Gram Negative Bacillus 1 Resulted 12/21/18 13:50 Rectum VRE Culture - Final Enterococcus Faecium - Vre Complete Intake and Output 12/22/18 12/23/18 19:00 07:00 Intake Total 1767.200 ml 1643.2 ml Output Total 1430 ml 960 ml Balance 337.200 ml 683.2 ml Intake IV Total 1767.200 ml 1643.2 ml Output Urine Total 1430 ml 960 ml Objective PHYSICAL EXAMINATION: GENERAL: The patient is a well-developed and well-nourished male in moderate respiratory distress. HEENT: Eyes, pupils equal and responsive to light and accommodation. Extraocular movements are intact. NECK: Supple. No lymphadenopathy. CHEST: Mech vent; Coarse breath sounds bilaterally without wheezes or rales. CARDIOVASCULAR: Tachycardic, regular rhythm. S1 and S2 are normal without murmurs, rubs, or gallops. ABDOMEN: Soft, nontender, and nondistended with positive bowel sounds. No evidence of hepatosplenomegaly. No rebound or guarding noted. EXTREMITIES: Negative for clubbing, cyanosis, or edema. RECTAL: Not performed. GENITAL: Not performed. NEUROLOGIC: Unable to assess. Assessment/Plan Assessment/Plan ASSESSMENT: This is a 38-year-old male with: 1. Respiratory failure. 2. Urinary tract infection=citrobacter. 3. T12 paraplegia. 4. Neurogenic bladder with indwelling Dye. 5. Sepsis=gram pos cocci TREATMENT: 1. Respiratory failure. A Pulmonary consultation has been obtained with Dr. Jose L Rubi. The patient is currently intubated in the intensive care unit. We will follow recommendations of Pulmonary. 2. Urinary tract infection. Urine culture=citrobacter. An Infectious Disease consultation has been obtained with Dr. Mcdonnell. Continue vancomycin, amikacin and ertapenem per ID 3. T12 paraplegia. 4. Neurogenic bladder with indwelling Dye. Jama Moreau MD Dec 23, 2018 16:48
[2018-12-23] MEDS: Dyna-Hex 2% Top Sol 2oz TOPIC SCH (20:41)
[2018-12-23] MEDS: Ertapenem 1 GM in NS 55 ML IV SCH (20:41)
--- NOTE | 2018-12-23 23:10 | Diagnostic Imaging Report ---
Indication: NG tube placement Comparison: 12/22/2018 Single view of the abdomen obtained Findings: NG tube is curled in the stomach. Bowel gas pattern is nonspecific. Surgical clips in the upper abdomen noted. IMPRESSION: NG tube in good position
[2018-12-24] VITALS (36 sets, daily range): BP systolic 83–132; BP diastolic 40–94
[2018-12-24] MEDS: LORazepam Inj 2mg/ml 1ml IV PRN ×4 (04:22→20:28)
[2018-12-24] MEDS: D5 1/2NS 1,000 ML IV SCH (05:01)
[2018-12-24] MEDS: Hydrocortisone 100mg Inj IV SCH ×3 (05:02→21:21)
[2018-12-24 05:52] LABS: HEMATOCRIT 25.8 % (42.0-52.0); HEMOGLOBIN 7.9 G/DL (14.2-18.0); MEAN CORPUSCULAR VOLUME 90 FL (80-99); PLATELET COUNT 229 K/UL (150-450); RED BLOOD COUNT 2.85 M/UL (4.70-6.10); RED CELL DISTRIBUTION WIDTH 14.7 % (11.6-14.8); WHITE BLOOD COUNT 9.2 K/UL (4.8-10.8)
[2018-12-24 06:35] LABS: ALANINE AMINOTRANSFERASE 10 U/L (12-78); ALBUMIN 1.5 G/DL (3.4-5.0); ALBUMIN/GLOBULIN RATIO 0.4 (1.0-2.7); ALKALINE PHOSPHATASE 103 U/L (46-116); ANION GAP 14 mmol/L (5-15); ASPARTATE AMINO TRANSFERASE 11 U/L (15-37); BILIRUBIN,TOTAL 0.2 MG/DL (0.2-1.0); BLOOD UREA NITROGEN 15 mg/dL (7-18); CALCIUM 8.8 MG/DL (8.5-10.1); CARBON DIOXIDE 14 MMOL/L (21-32); CHLORIDE 121 MMOL/L (98-107); CREATININE 0.7 MG/DL (0.55-1.30); POTASSIUM 3.6 MMOL/L (3.5-5.1); SODIUM 148 MMOL/L (136-145)
[2018-12-24] MEDS ORDERED: Vancomycin 1gm/D5W 275ml IVPB ONE ×2 (08:00)
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
[2018-12-24] MEDS ORDERED: Amikacin 1,200 MG in NS 275 ML IV SCH (09:00)
[2018-12-24] MEDS: Pantoprazole Inj IVP SCH (09:05)
[2018-12-24] MEDS: Heparin 5000 units/ml inj SUBQ SCH ×2 (09:19→20:28)
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
--- NOTE | 2018-12-24 11:55 | Diagnostic Imaging Report ---
Indication: Dyspnea Comparison: 12/23/2018 A single view chest radiograph was obtained. Findings: Mild basal atelectasis demonstrated. Tubes and lines are stable. Heart size is stable. Lung volumes remain very low. IMPRESSION: No change. Basal atelectasis
--- NOTE | 2018-12-24 15:52 | Cardiology Report ---
APPROVED REPORT EKG Measurement Heart [id number] MD [id number] Sinus tachycardia with fusion complexes Otherwise normal ECG
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
[2018-12-24] MEDS: Ertapenem 1 GM in NS 55 ML IV SCH (20:28)
[2018-12-24] MEDS: Dyna-Hex 2% Top Sol 2oz TOPIC SCH (20:28)
[2018-12-25] VITALS (17 sets, daily range): BP systolic 91–126; BP diastolic 64–102
[2018-12-25] MEDS: LORazepam Inj 2mg/ml 1ml IV PRN ×4 (00:51→12:10)
[2018-12-25 06:22] LABS: HEMATOCRIT 29.1 % (42.0-52.0); HEMOGLOBIN 9.3 G/DL (14.2-18.0); MEAN CORPUSCULAR VOLUME 89 FL (80-99); PLATELET COUNT 235 K/UL (150-450); RED BLOOD COUNT 3.27 M/UL (4.70-6.10); WHITE BLOOD COUNT 7.9 K/UL (4.8-10.8)
[2018-12-25 08:13] LABS: ALANINE AMINOTRANSFERASE 12 U/L (12-78); ALBUMIN 1.9 G/DL (3.4-5.0); ALBUMIN/GLOBULIN RATIO 0.4 (1.0-2.7); ALKALINE PHOSPHATASE 107 U/L (46-116); ANION GAP 14 mmol/L (5-15); ASPARTATE AMINO TRANSFERASE 12 U/L (15-37); BILIRUBIN,TOTAL 0.3 MG/DL (0.2-1.0); BLOOD UREA NITROGEN 13 mg/dL (7-18); CALCIUM 8.4 MG/DL (8.5-10.1); CARBON DIOXIDE 15 MMOL/L (21-32); CHLORIDE 115 MMOL/L (98-107); CREATININE 0.7 MG/DL (0.55-1.30); PHOSPHORUS 2.2 MG/DL (2.5-4.9); POTASSIUM 2.8 MMOL/L (3.5-5.1); SODIUM 146 MMOL/L (136-145)
[2018-12-25] MEDS ORDERED: Vancomycin 1.25gm/NS Premix IVPB SCH (09:00)
[2018-12-25] MEDS: Pantoprazole Inj IVP SCH (09:07)
[2018-12-25] MEDS: Heparin 5000 units/ml inj SUBQ SCH ×2 (09:09→21:38)
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
--- NOTE | 2018-12-25 10:26 | Diagnostic Imaging Report ---
EXAM: XR Chest, 1 View CLINICAL HISTORY: DYSPNEA TECHNIQUE: Frontal view of the chest. COMPARISON: Chest radiograph on 12 24 2018 FINDINGS: Hardware: Left-sided PICC line terminates in the region of the right atrium. Interval removal of the endotracheal tube and enteric tube. Lungs pleura: Low lung volumes. Bibasilar opacities are favored to represent atelectasis. Elevation of the right hemidiaphragm. No pleural effusion or pneumothorax. Heart mediastinum: Normal. No cardiomegaly. Soft tissues: Densities again projected over the left axilla. Bones: No acute fracture. Upper abdomen: Nonspecific visualized bowel gas pattern. IMPRESSION: 1. Low lung volumes. Bibasilar opacities are favored to represent atelectasis. Elevation of the right hemidiaphragm. 2. Left-sided PICC line terminates in the region of the right atrium. Interval removal of the endotracheal tube and enteric tube.
[2018-12-25] MEDS ORDERED: Potassium Phosphate 15 MM in NS 275 ML IV ONE (11:30)
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
[2018-12-25] MEDS ORDERED: Albuterol/Ipratropium 3ml neb HHN PRN ×2 (12:00→13:33)
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
[2018-12-25] MEDS ORDERED: Miralax 17gm pkt ORAL PRN (13:34)
--- NOTE | 2018-12-25 15:14 | Internal Med Progress Note ---
Subjective Date of Service: Dec 25, 2018 Physician Name Jama Moreau Attending Physician Maximo Awad MD Current Medications Medications (Trade) Dose Ordered Sig/Thomas Route PRN Reason Start Time Stop Time Status Last Admin Dose Admin Albuterol/ Ipratropium (Albuterol/ Ipratropium) 3 ml Q4H PRN HHN Shortness of Breath 12/25/18 13:33 12/30/18 13:32 Amikacin Protocol (Amikacin pharmacy to dose) 1 ea DAILY PRN MISC PER RX PROTOCOL 12/26/18 09:00 01/20/19 19:14 Amikacin Sulfate 1200 mg/Sodium Chloride 279.8 ml @ 279.8 mls/ hr Q36H IV 12/25/18 21:00 12/31/18 08:59 Chlorhexidine Gluconate (Megan-Hex 2%) 1 applic DAILY@2000 TOPIC 12/25/18 20:00 01/20/19 19:59 Dextrose 1,000 ml @ 50 mls/hr Q20H IV 12/25/18 13:33 01/24/19 13:32 Ertapenem 1 gm/ Sodium Chloride 55 ml @ 110 mls/hr Q24H IV 12/25/18 20:00 12/26/18 19:59 Heparin Sodium (Porcine) (Heparin 5000 units/ml) 5,000 units EVERY 12 HOURS SUBQ 12/25/18 21:00 01/20/19 20:59 Lorazepam (Ativan 2mg/ml 1ml) 2 mg Q2H PRN IV For Anxiety 12/25/18 13:34 01/01/19 13:33 Ondansetron HCl (Zofran) 4 mg Q6H PRN IVP Nausea & Vomiting 12/25/18 13:34 01/24/19 13:33 Pantoprazole (Protonix) 40 mg DAILY IVP 12/26/18 09:00 01/21/19 08:59 Polyethylene Glycol (Miralax) 17 gm DAILYPRN PRN ORAL Constipation 12/25/18 13:34 01/24/19 13:33 Potassium Phosphate 15 mm/ Sodium Chloride 280 ml @ 46.67 mls/ hr ONCE ONCE IV 12/25/18 11:30 12/25/18 17:29 12/25/18 11:48 Potassium Chloride (K-Dur) 40 meq TWICE A DAY ORAL 12/25/18 18:00 01/24/19 17:59 Vancomycin HCl (Vanco rx to dose) 1 ea DAILY PRN MISC PER RX PROTOCOL 12/26/18 09:00 01/20/19 19:14 Vancomycin/Sodium Chloride 275 ml @ 183.333 mls/hr Q24H IVPB 12/26/18 09:00 12/30/18 08:59 Allergies: Coded Allergies: ACETAMINOPHEN (Verified Allergy, Unknown, 01/26/16) HYDROCODONE (Verified Allergy, Unknown, 01/26/16) ROS Limited/Unobtainable: No Constitutional: Reports: no symptoms HEENT: Reports: no symptoms Cardiovascular: Reports: no symptoms Respiratory: Reports: no symptoms Gastrointestinal/Abdominal: Reports: no symptoms Genitourinary: Reports: no symptoms Neurologic/Psychiatric: Reports: no symptoms Subjective 38 YO T-12 paraplegic admitted with respiratory failure. Now UTI and sepsis. Extubated 12/24/18. Cover for Int Med-DR Awad. ICU Objective Last Vital Signs Date Time Temp Pulse Resp B/P (MAP) Pulse Ox O2 Delivery O2 Flow Rate FiO2 12/25/18 13:00 97.5 102 20 124/77 (93) 97 12/25/18 12:56 Room Air 12/25/18 12:00 2.0 12/25/18 07:30 21 Laboratory Tests Test 12/25/18 04:00 White Blood Count 7.9 K/UL (4.8-10.8) Red Blood Count 3.27 M/UL (4.70-6.10) L Hemoglobin 9.3 G/DL (14.2-18.0) L Hematocrit 29.1 % (42.0-52.0) L Mean Corpuscular Volume 89 FL (80-99) Mean Corpuscular Hemoglobin 28.4 PG (27.0-31.0) Mean Corpuscular Hemoglobin Concent 32.0 G/DL (32.0-36.0) Red Cell Distribution Width 14.0 % (11.6-14.8) Platelet Count 235 K/UL (150-450) Mean Platelet Volume 4.8 FL (6.5-10.1) L Neutrophils (%) (Auto) % (45.0-75.0) Lymphocytes (%) (Auto) % (20.0-45.0) Monocytes (%) (Auto) % (1.0-10.0) Eosinophils (%) (Auto) % (0.0-3.0) Basophils (%) (Auto) % (0.0-2.0) Differential Total Cells Counted 100 Neutrophils % (Manual) 83 % (45-75) H Lymphocytes % (Manual) 15 % (20-45) L Monocytes % (Manual) 2 % (1-10) Eosinophils % (Manual) 0 % (0-3) Basophils % (Manual) 0 % (0-2) Band Neutrophils 0 % (0-8) Platelet Estimate Adequate Platelet Morphology Normal Anisocytosis 1+ Sodium Level 146 MMOL/L (136-145) H Potassium Level 2.8 MMOL/L (3.5-5.1) L Chloride Level 115 MMOL/L (98-107) H Carbon Dioxide Level 15 MMOL/L (21-32) L Anion Gap 14 mmol/L (5-15) Blood Urea Nitrogen 13 mg/dL (7-18) Creatinine 0.7 MG/DL (0.55-1.30) Estimat Glomerular Filtration Rate > 60 mL/min (>60) Glucose Level 98 MG/DL (74-106) Calcium Level 8.4 MG/DL (8.5-10.1) L Phosphorus Level 2.2 MG/DL (2.5-4.9) L Magnesium Level 1.6 MG/DL (1.8-2.4) L Total Bilirubin 0.3 MG/DL (0.2-1.0) Aspartate Amino Transf (AST/SGOT) 12 U/L (15-37) L Alanine Aminotransferase (ALT/SGPT) 12 U/L (12-78) Alkaline Phosphatase 107 U/L (46-116) C-Reactive Protein, Quantitative 3.2 mg/dL (0.00-0.90) H Pro-B-Type Natriuretic Peptide 7457 pg/mL (0-125) H Total Protein 6.4 G/DL (6.4-8.2) Albumin 1.9 G/DL (3.4-5.0) L Globulin 4.5 g/dL Albumin/Globulin Ratio 0.4 (1.0-2.7) L Microbiology Date/Time Source Procedure Growth Status 12/22/18 15:50 Blood Blood Culture - Preliminary NO GROWTH AFTER 48 HOURS Resulted 12/22/18 16:55 Nose - Final Complete 12/22/18 16:55 Nose - Final Complete Intake and Output 12/24/18 12/25/18 19:00 07:00 Intake Total 1324.8 ml 935 ml Output Total 710 ml 930 ml Balance 614.8 ml 5 ml Intake Oral 170 ml 80 ml IV Total 1154.8 ml 855 ml Tube Feeding 0 ml Output Urine Total 710 ml 930 ml # Bowel Movements 100 Objective PHYSICAL EXAMINATION: GENERAL: The patient is a well-developed and well-nourished male in moderate respiratory distress. HEENT: Eyes, pupils equal and responsive to light and accommodation. Extraocular movements are intact. NECK: Supple. No lymphadenopathy. CHEST: Mech vent; Coarse breath sounds bilaterally without wheezes or rales. CARDIOVASCULAR: Tachycardic, regular rhythm. S1 and S2 are normal without murmurs, rubs, or gallops. ABDOMEN: Soft, nontender, and nondistended with positive bowel sounds. No evidence of hepatosplenomegaly. No rebound or guarding noted. EXTREMITIES: Negative for clubbing, cyanosis, or edema. RECTAL: Not performed. GENITAL: Not performed. NEUROLOGIC: Unable to assess. Assessment/Plan Assessment/Plan ASSESSMENT: This is a 38-year-old male with: 1. Respiratory failure. 2. Urinary tract infection=citrobacter. 3. T12 paraplegia. 4. Neurogenic bladder with indwelling Dye. 5. Sepsis=MRSA TREATMENT: 1. Respiratory failure. A Pulmonary consultation has been obtained with Dr. Jose L Rubi. The patient is currently iextubated 12/24/18 in the intensive care unit. We will follow recommendations of Pulmonary. 2. Urinary tract infection. Urine culture=citrobacter. An Infectious Disease consultation has been obtained with Dr. Mcdonnell. Continue vancomycin, amikacin and ertapenem per ID 3. T12 paraplegia. 4. Neurogenic bladder with indwelling Dye. Jama Moreau MD Dec 25, 2018 15:14
[2018-12-25] MEDS: Dyna-Hex 2% Top Sol 2oz TOPIC SCH (20:00)
[2018-12-25] MEDS ORDERED: Amikacin 1,200 MG in NS 275 ML IV SCH (21:00)
[2018-12-25] MEDS: Ertapenem 1 GM in NS 55 ML IV SCH (21:33)
[2018-12-26] VITALS: BP 112/60
[2018-12-26 04:06] VITALS: BP 106/68
[2018-12-26 06:36] LABS: BASOPHILS % (AUTO) 0.8 % (0.0-2.0); EOSINOPHILS % (AUTO) 1.7 % (0.0-3.0); HEMATOCRIT 36.3 % (42.0-52.0); HEMOGLOBIN 11.5 G/DL (14.2-18.0); LYMPHOCYTES % (AUTO) 20.2 % (20.0-45.0); MEAN CORPUSCULAR VOLUME 87 FL (80-99); MONOCYTES % (AUTO) 9.9 % (1.0-10.0); NEUTROPHILS % (AUTO) 67.3 % (45.0-75.0); PLATELET COUNT 306 K/UL (150-450); RED BLOOD COUNT 4.15 M/UL (4.70-6.10); RED CELL DISTRIBUTION WIDTH 14.1 % (11.6-14.8); WHITE BLOOD COUNT 11.5 K/UL (4.8-10.8)
[2018-12-26 07:04] LABS: ANION GAP 9 mmol/L (5-15); BLOOD UREA NITROGEN 10 mg/dL (7-18); CALCIUM 8.1 MG/DL (8.5-10.1); CARBON DIOXIDE 19 MMOL/L (21-32); CHLORIDE 111 MMOL/L (98-107); CREATININE 0.7 MG/DL (0.55-1.30); SODIUM 138 MMOL/L (136-145)
[2018-12-26 07:13] LABS: ALANINE AMINOTRANSFERASE 13 U/L (12-78); ALBUMIN 2.1 G/DL (3.4-5.0); ALKALINE PHOSPHATASE 102 U/L (46-116); ASPARTATE AMINO TRANSFERASE 15 U/L (15-37); BILIRUBIN,DIRECT 0.2 MG/DL (0.0-0.3); BILIRUBIN,TOTAL 0.5 MG/DL (0.2-1.0)
[2018-12-26 07:15] LABS: POTASSIUM 2.5 MMOL/L (3.5-5.1)
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
[2018-12-26 07:27] LABS: PHOSPHORUS 2.9 MG/DL (2.5-4.9)
[2018-12-26 08:00] VITALS: BP 108/73
[2018-12-26] MEDS: Pantoprazole Inj IVP SCH (08:09)
[2018-12-26] MEDS: Heparin 5000 units/ml inj SUBQ SCH ×2 (08:11→21:00)
[2018-12-26] MEDS ORDERED: Amikacin Rx to dose MISC PRN (09:00)
[2018-12-26] MEDS: Spironolactone 25mg tab ORAL SCH (09:25)
[2018-12-26] MEDS: LORazepam Inj 2mg/ml 1ml IV PRN (09:41)
[2018-12-26] MEDS: Vancomycin 1.25gm/NS Premix 275 ML IVPB SCH (10:17)
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
[2018-12-26] MEDS ORDERED: D5NS 1000ml IV ONE (11:00)
[2018-12-26] MEDS ORDERED: NS 500ML ONE (11:00)
[2018-12-26] MEDS ORDERED: Potassium Phosphate 15 MM in NS 275 ML IV ONE (11:30)
[2018-12-26 12:00] VITALS: BP 108/65
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
[2018-12-26 16:00] VITALS: BP 129/85
[2018-12-26] MEDS: Ertapenem 1 GM in NS 55 ML IV SCH (19:41)
[2018-12-26 20:00] VITALS: BP 110/68
[2018-12-26] MEDS: Dyna-Hex 2% Top Sol 2oz TOPIC SCH (20:00)
[2018-12-27 00:13] VITALS: BP 118/70
[2018-12-27] MEDS: LORazepam Inj 2mg/ml 1ml IV PRN ×2 (00:35→23:49)
[2018-12-27 04:00] VITALS: BP 121/79
[2018-12-27 08:00] VITALS: BP 109/78
[2018-12-27 08:32] LABS: BASOPHILS % (AUTO) 0.7 % (0.0-2.0); EOSINOPHILS % (AUTO) 4.4 % (0.0-3.0); HEMATOCRIT 34.4 % (42.0-52.0); HEMOGLOBIN 11.5 G/DL (14.2-18.0); LYMPHOCYTES % (AUTO) 20.2 % (20.0-45.0); MEAN CORPUSCULAR VOLUME 87 FL (80-99); MONOCYTES % (AUTO) 6.9 % (1.0-10.0); NEUTROPHILS % (AUTO) 67.8 % (45.0-75.0); PLATELET COUNT 288 K/UL (150-450); RED BLOOD COUNT 3.96 M/UL (4.70-6.10); RED CELL DISTRIBUTION WIDTH 13.3 % (11.6-14.8); WHITE BLOOD COUNT 12.6 K/UL (4.8-10.8)
[2018-12-27] MEDS: Pantoprazole Inj IVP SCH (08:47)
[2018-12-27 08:48] LABS: ALANINE AMINOTRANSFERASE 13 U/L (12-78); ALBUMIN 2.1 G/DL (3.4-5.0); ALBUMIN/GLOBULIN RATIO 0.5 (1.0-2.7); ALKALINE PHOSPHATASE 101 U/L (46-116); ANION GAP 14 mmol/L (5-15); ASPARTATE AMINO TRANSFERASE 19 U/L (15-37); BILIRUBIN,TOTAL 0.4 MG/DL (0.2-1.0); BLOOD UREA NITROGEN 7 mg/dL (7-18); CALCIUM 8.3 MG/DL (8.5-10.1); CARBON DIOXIDE 16 MMOL/L (21-32); CHLORIDE 114 MMOL/L (98-107); CREATININE 0.7 MG/DL (0.55-1.30); PHOSPHORUS 3.6 MG/DL (2.5-4.9); POTASSIUM 3.7 MMOL/L (3.5-5.1); SODIUM 144 MMOL/L (136-145)
[2018-12-27] MEDS: Vancomycin 1.25gm/NS Premix 275 ML IVPB SCH (08:48)
[2018-12-27] MEDS: Heparin 5000 units/ml inj SUBQ SCH ×2 (08:50→21:00)
[2018-12-27] MEDS: Spironolactone 25mg tab ORAL SCH (09:09)
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
--- NOTE | 2018-12-27 11:21 | CDS Physician Query ---
Dear Dr. Jama Moreau Date: 12/27/2018 CDS name: Mariela Nolan Clarification is required for compliance, coding accuracy, and to reflect severity of illness for this patient. A diagnosis of decubitus ulcer has been identified in this patient. Please clarify the location and stage of the ulcer during and any changes throughout inpatient stay for greater specificity. Clinical Documentation States: 12/23 ID note: 38yo gentleman with PMH below presents after syncopal episode while he was having a bowel movement. Pt has been confused ever since that episode. Pt was intubated in the ED. ID consulted for sepsis...12/21 hip wound cx: GNR 12/21 sacral wound cx: E coli Wound Assessment: 12/21 Anterior Ishcial Tuberosity open wound unstageable, Posterior sacral pressure injury partial thickness, Right heel pressure injury 12/25 Anterior Ischial Tuberosity pressure injury full thickness, Posteior sacral pressure injury full thickness, Right heel pressure injury Kindly specify the Locations and stages of each decubitus or pressure ulcer: Stages of each Pressure ulcer: [] Stage I (Non-blanching erythema of intact skin, the heralding lesion of skin ulceration, is present) [X] Stage II (There is partial thickness skin loss involving epidermis, dermis, or both) [] Stage III (Full thickness skin loss involving damage or necrosis of subcutaneous tissue that may extend down to, but not through the underlying fascia exists) [] Stage IV (Full thickness skin loss with extensive destruction, tissue necrosis, or damage to muscle, bone, or supporting structures is present.) [] Unstageable Present on Admission: [X] Yes [] No [] Clinically Undetermined Physician signature Date Please also document in your Progress Notes and/or Discharge Summary and indicate if the condition was present on admission. CESARD
[2018-12-27 12:00] VITALS: BP 110/72
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
[2018-12-27 16:00] VITALS: BP_SYST 107; BP_SYST 121; BP_DIAS 71; BP_DIAS 79
--- NOTE | 2018-12-27 18:48 | Internal Med Progress Note ---
Subjective Date of Service: Dec 27, 2018 Physician Name Jama Moreau Attending Physician Maximo Awad MD Current Medications Medications (Trade) Dose Ordered Sig/Thomas Route PRN Reason Start Time Stop Time Status Last Admin Dose Admin Albuterol/ Ipratropium (Albuterol/ Ipratropium) 3 ml Q4H PRN HHN Shortness of Breath 12/25/18 13:33 12/30/18 13:32 Chlorhexidine Gluconate (Megan-Hex 2%) 1 applic DAILY@2000 TOPIC 12/25/18 20:00 01/20/19 19:59 Dextrose 1,000 ml @ 50 mls/hr Q20H IV 12/25/18 13:33 01/24/19 13:32 12/27/18 05:23 Ertapenem 1 gm/ Sodium Chloride 55 ml @ 110 mls/hr Q24H IV 12/25/18 20:00 12/30/18 23:59 12/26/18 19:41 Heparin Sodium (Porcine) (Heparin 5000 units/ml) 5,000 units EVERY 12 HOURS SUBQ 12/25/18 21:00 01/20/19 20:59 12/27/18 08:50 Lorazepam (Ativan 2mg/ml 1ml) 2 mg Q2H PRN IV For Anxiety 12/25/18 13:34 01/01/19 13:33 12/27/18 00:35 Ondansetron HCl (Zofran) 4 mg Q6H PRN IVP Nausea & Vomiting 12/25/18 13:34 01/24/19 13:33 Pantoprazole (Protonix) 40 mg DAILY IVP 12/26/18 09:00 01/21/19 08:59 12/27/18 08:47 Polyethylene Glycol (Miralax) 17 gm DAILYPRN PRN ORAL Constipation 12/25/18 13:34 01/24/19 13:33 Potassium Chloride (K-Dur) 40 meq TWICE A DAY ORAL 12/25/18 18:00 01/24/19 17:59 12/27/18 18:18 Spironolactone (Aldactone) 25 mg DAILY ORAL 12/26/18 09:00 01/25/19 08:59 12/27/18 09:09 Vancomycin HCl (Vanco rx to dose) 1 ea DAILY PRN MISC PER RX PROTOCOL 12/26/18 09:00 12/12/19 19:14 Vancomycin/Sodium Chloride 275 ml @ 183.333 mls/hr Q24H IVPB 12/26/18 09:00 12/30/18 08:59 12/27/18 08:48 Allergies: Coded Allergies: ACETAMINOPHEN (Verified Allergy, Unknown, 01/26/16) HYDROCODONE (Verified Allergy, Unknown, 01/26/16) ROS Limited/Unobtainable: No Constitutional: Reports: no symptoms HEENT: Reports: no symptoms Cardiovascular: Reports: no symptoms Respiratory: Reports: no symptoms Gastrointestinal/Abdominal: Reports: no symptoms Genitourinary: Reports: no symptoms Neurologic/Psychiatric: Reports: no symptoms Subjective 38 YO T-12 paraplegic admitted with respiratory failure. Now UTI and sepsis. Extubated 12/24/18. Cover for Int Med-DR Awad. Objective Last Vital Signs Date Time Temp Pulse Resp B/P (MAP) Pulse Ox O2 Delivery O2 Flow Rate FiO2 12/27/18 18:44 Room Air 12/27/18 16:00 98.9 89 17 107/71 (83) 96 12/27/18 09:04 21 12/25/18 12:00 2.0 Laboratory Tests Test 12/27/18 05:59 White Blood Count 12.6 K/UL (4.8-10.8) H Red Blood Count 3.96 M/UL (4.70-6.10) L Hemoglobin 11.5 G/DL (14.2-18.0) L Hematocrit 34.4 % (42.0-52.0) L Mean Corpuscular Volume 87 FL (80-99) Mean Corpuscular Hemoglobin 28.9 PG (27.0-31.0) Mean Corpuscular Hemoglobin Concent 33.4 G/DL (32.0-36.0) Red Cell Distribution Width 13.3 % (11.6-14.8) Platelet Count 288 K/UL (150-450) Mean Platelet Volume 5.6 FL (6.5-10.1) L Neutrophils (%) (Auto) 67.8 % (45.0-75.0) Lymphocytes (%) (Auto) 20.2 % (20.0-45.0) Monocytes (%) (Auto) 6.9 % (1.0-10.0) Eosinophils (%) (Auto) 4.4 % (0.0-3.0) H Basophils (%) (Auto) 0.7 % (0.0-2.0) Sodium Level 144 MMOL/L (136-145) Potassium Level 3.7 MMOL/L (3.5-5.1) Chloride Level 114 MMOL/L (98-107) H Carbon Dioxide Level 16 MMOL/L (21-32) L Anion Gap 14 mmol/L (5-15) Blood Urea Nitrogen 7 mg/dL (7-18) Creatinine 0.7 MG/DL (0.55-1.30) Estimat Glomerular Filtration Rate > 60 mL/min (>60) Glucose Level 67 MG/DL (74-106) L Calcium Level 8.3 MG/DL (8.5-10.1) L Phosphorus Level 3.6 MG/DL (2.5-4.9) Magnesium Level 1.8 MG/DL (1.8-2.4) Total Bilirubin 0.4 MG/DL (0.2-1.0) Aspartate Amino Transf (AST/SGOT) 19 U/L (15-37) Alanine Aminotransferase (ALT/SGPT) 13 U/L (12-78) Alkaline Phosphatase 101 U/L (46-116) Total Protein 6.5 G/DL (6.4-8.2) Albumin 2.1 G/DL (3.4-5.0) L Globulin 4.4 g/dL Albumin/Globulin Ratio 0.5 (1.0-2.7) L Intake and Output 12/26/18 12/27/18 18:59 06:59 Intake Total 1556.666 ml 490 ml Output Total 1600 ml Balance 1556.666 ml -1110 ml Intake Oral 240 ml 240 ml IV Total 1316.666 ml 250 ml Tube Feeding 0 ml Output Urine Total 1500 ml Stool Total 100 ml # Voids 2 # Bowel Movements 2 3 Objective PHYSICAL EXAMINATION: GENERAL: The patient is a well-developed and well-nourished male in moderate respiratory distress. HEENT: Eyes, pupils equal and responsive to light and accommodation. Extraocular movements are intact. NECK: Supple. No lymphadenopathy. CHEST: Coarse breath sounds bilaterally without wheezes or rales. CARDIOVASCULAR: Tachycardic, regular rhythm. S1 and S2 are normal without murmurs, rubs, or gallops. ABDOMEN: Soft, nontender, and nondistended with positive bowel sounds. No evidence of hepatosplenomegaly. No rebound or guarding noted. EXTREMITIES: Negative for clubbing, cyanosis, or edema. RECTAL: Not performed. GENITAL: Not performed. NEUROLOGIC: Unable to assess. Assessment/Plan Assessment/Plan ASSESSMENT: This is a 38-year-old male with: 1. Respiratory failure. 2. Urinary tract infection=citrobacter. 3. T12 paraplegia. 4. Neurogenic bladder with indwelling Dye. 5. Sepsis=MRSA 6. Sacral decubitus=E. Coli TREATMENT: 1. Respiratory failure. A Pulmonary consultation has been obtained with Dr. Jose L Rubi. The patient is currently extubated 12/24/18 on Med/Surg. Tolerating room air. We will follow recommendations of Pulmonary. 2. Urinary tract infection. Urine culture=citrobacter. An Infectious Disease consultation has been obtained with Dr. Mcdonnell. Continue vancomycin and ertapenem per ID 3. T12 paraplegia. 4. Neurogenic bladder with indwelling Dye. Jama Moreau MD Dec 27, 2018 18:48
[2018-12-27 20:00] VITALS: BP 113/66
[2018-12-27] MEDS: Ertapenem 1 GM in NS 55 ML IV SCH (20:00)
[2018-12-27] MEDS: Dyna-Hex 2% Top Sol 2oz TOPIC SCH (20:00)
[2018-12-28] VITALS (7 sets, daily range): BP systolic 91–122; BP diastolic 62–86
[2018-12-28] MEDS: LORazepam Inj 2mg/ml 1ml IV PRN ×2 (02:37→05:50)
[2018-12-28 08:53] LABS: BASOPHILS % (AUTO) 0.7 % (0.0-2.0); EOSINOPHILS % (AUTO) 6.3 % (0.0-3.0); HEMOGLOBIN 11.6 G/DL (14.2-18.0); LYMPHOCYTES % (AUTO) 19.1 % (20.0-45.0); MEAN CORPUSCULAR VOLUME 86 FL (80-99); PLATELET COUNT 319 K/UL (150-450); RED BLOOD COUNT 4.18 M/UL (4.70-6.10); RED CELL DISTRIBUTION WIDTH 13.7 % (11.6-14.8); WHITE BLOOD COUNT 13.1 K/UL (4.8-10.8)
[2018-12-28 09:03] LABS: ANION GAP 13 mmol/L (5-15); BLOOD UREA NITROGEN 7 mg/dL (7-18); CARBON DIOXIDE 17 MMOL/L (21-32); CHLORIDE 111 MMOL/L (98-107); CREATININE 0.7 MG/DL (0.55-1.30); POTASSIUM 4.4 MMOL/L (3.5-5.1); SODIUM 141 MMOL/L (136-145)
[2018-12-28] MEDS: Pantoprazole Inj IVP SCH (09:05)
[2018-12-28] MEDS: Spironolactone 25mg tab ORAL SCH (09:05)
[2018-12-28] MEDS: Heparin 5000 units/ml inj SUBQ SCH ×2 (09:07→21:35)
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
[2018-12-28] MEDS: Vancomycin 1gm in D5W 275ml IVPB SCH (10:58)
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
--- NOTE | 2018-12-28 16:29 | Internal Med Progress Note ---
Subjective Date of Service: Dec 28, 2018 Physician Name Jama Moreau Attending Physician Maximo Awad MD Current Medications Medications (Trade) Dose Ordered Sig/Thomas Route PRN Reason Start Time Stop Time Status Last Admin Dose Admin Albuterol/ Ipratropium (Albuterol/ Ipratropium) 3 ml Q4H PRN HHN Shortness of Breath 12/25/18 13:33 12/30/18 13:32 Chlorhexidine Gluconate (Megan-Hex 2%) 1 applic DAILY@2000 TOPIC 12/25/18 20:00 01/20/19 19:59 Dextrose 1,000 ml @ 50 mls/hr Q20H IV 12/25/18 13:33 01/24/19 13:32 12/28/18 04:18 Ertapenem 1 gm/ Sodium Chloride 55 ml @ 110 mls/hr Q24H IV 12/25/18 20:00 12/30/18 23:59 12/26/18 19:41 Heparin Sodium (Porcine) (Heparin 5000 units/ml) 5,000 units EVERY 12 HOURS SUBQ 12/25/18 21:00 01/20/19 20:59 12/28/18 09:07 Lorazepam (Ativan 2mg/ml 1ml) 2 mg Q2H PRN IV For Anxiety 12/25/18 13:34 01/01/19 13:33 12/28/18 05:50 Ondansetron HCl (Zofran) 4 mg Q6H PRN IVP Nausea & Vomiting 12/25/18 13:34 01/24/19 13:33 Pantoprazole (Protonix) 40 mg DAILY IVP 12/26/18 09:00 01/21/19 08:59 12/28/18 09:05 Polyethylene Glycol (Miralax) 17 gm DAILYPRN PRN ORAL Constipation 12/25/18 13:34 01/24/19 13:33 Spironolactone (Aldactone) 25 mg DAILY ORAL 12/26/18 09:00 01/25/19 08:59 12/28/18 09:05 Vancomycin HCl (Vanco rx to dose) 1 ea DAILY PRN MISC PER RX PROTOCOL 12/26/18 09:00 01/20/19 19:14 Vancomycin HCl 1 gm/Dextrose 275 ml @ 183.708 mls/hr Q24H IVPB 12/28/18 10:30 01/02/19 10:29 12/28/18 10:58 Allergies: Coded Allergies: ACETAMINOPHEN (Verified Allergy, Unknown, 01/26/16) HYDROCODONE (Verified Allergy, Unknown, 01/26/16) ROS Limited/Unobtainable: No Constitutional: Reports: no symptoms HEENT: Reports: no symptoms Cardiovascular: Reports: no symptoms Respiratory: Reports: no symptoms Gastrointestinal/Abdominal: Reports: no symptoms Genitourinary: Reports: no symptoms Neurologic/Psychiatric: Reports: no symptoms Subjective 38 YO T-12 paraplegic admitted with respiratory failure. Now UTI and sepsis. Extubated 12/24/18. Cover for Int Guillaume-DR Awad. Objective Last Vital Signs Date Time Temp Pulse Resp B/P (MAP) Pulse Ox O2 Delivery O2 Flow Rate FiO2 12/28/18 12:00 97.4 97 18 120/81 (94) 94 12/28/18 09:20 Room Air 21 12/25/18 12:00 2.0 Laboratory Tests Test 12/28/18 08:10 White Blood Count 13.1 K/UL (4.8-10.8) H Red Blood Count 4.18 M/UL (4.70-6.10) L Hemoglobin 11.6 G/DL (14.2-18.0) L Hematocrit 36.0 % (42.0-52.0) L Mean Corpuscular Volume 86 FL (80-99) Mean Corpuscular Hemoglobin 27.7 PG (27.0-31.0) Mean Corpuscular Hemoglobin Concent 32.2 G/DL (32.0-36.0) Red Cell Distribution Width 13.7 % (11.6-14.8) Platelet Count 319 K/UL (150-450) Mean Platelet Volume 5.6 FL (6.5-10.1) L Neutrophils (%) (Auto) 68.0 % (45.0-75.0) Lymphocytes (%) (Auto) 19.1 % (20.0-45.0) L Monocytes (%) (Auto) 6.0 % (1.0-10.0) Eosinophils (%) (Auto) 6.3 % (0.0-3.0) H Basophils (%) (Auto) 0.7 % (0.0-2.0) Sodium Level 141 MMOL/L (136-145) Potassium Level 4.4 MMOL/L (3.5-5.1) Chloride Level 111 MMOL/L (98-107) H Carbon Dioxide Level 17 MMOL/L (21-32) L Anion Gap 13 mmol/L (5-15) Blood Urea Nitrogen 7 mg/dL (7-18) Creatinine 0.7 MG/DL (0.55-1.30) Estimat Glomerular Filtration Rate > 60 mL/min (>60) Glucose Level 79 MG/DL (74-106) Calcium Level 9.0 MG/DL (8.5-10.1) Vancomycin Level Trough 19.7 ug/mL (5.0-12.0) H Intake and Output 12/27/18 12/28/18 19:00 07:00 Intake Total 600 ml 850 ml Output Total 800 ml 750 ml Balance -200 ml 100 ml Intake Oral 500 ml IV Total 350 ml Other 600 ml Output Urine Total 800 ml 750 ml Objective PHYSICAL EXAMINATION: GENERAL: The patient is a well-developed and well-nourished male in moderate respiratory distress. HEENT: Eyes, pupils equal and responsive to light and accommodation. Extraocular movements are intact. NECK: Supple. No lymphadenopathy. CHEST: Coarse breath sounds bilaterally without wheezes or rales. CARDIOVASCULAR: Tachycardic, regular rhythm. S1 and S2 are normal without murmurs, rubs, or gallops. ABDOMEN: Soft, nontender, and nondistended with positive bowel sounds. No evidence of hepatosplenomegaly. No rebound or guarding noted. EXTREMITIES: Negative for clubbing, cyanosis, or edema. RECTAL: Not performed. GENITAL: Not performed. NEUROLOGIC: Unable to assess. Assessment/Plan Assessment/Plan ASSESSMENT: This is a 38-year-old male with: 1. Respiratory failure. 2. Urinary tract infection=citrobacter. 3. T12 paraplegia. 4. Neurogenic bladder with indwelling Dye. 5. Sepsis=MRSA 6. Sacral decubitus=E. Coli TREATMENT: 1. Respiratory failure. A Pulmonary consultation has been obtained with Dr. Jose L Rubi. The patient is currently extubated 12/24/18 on Med/Surg. Tolerating room air. We will follow recommendations of Pulmonary. 2. Urinary tract infection. Urine culture=citrobacter. An Infectious Disease consultation has been obtained with Dr. Mcdonnell. Continue vancomycin and ertapenem per ID 3. T12 paraplegia. 4. Neurogenic bladder with indwelling Dye. Jama Moreau MD Dec 28, 2018 16:29
[2018-12-28] MEDS: Dyna-Hex 2% Top Sol 2oz TOPIC SCH (20:00)
[2018-12-28] MEDS: Ertapenem 1 GM in NS 55 ML IV SCH (20:21)
[2018-12-29] VITALS (9 sets, daily range): BP systolic 87–105; BP diastolic 51–84
[2018-12-29 06:19] LABS: BASOPHILS % (AUTO) 0.7 % (0.0-2.0); EOSINOPHILS % (AUTO) 6.8 % (0.0-3.0); HEMATOCRIT 37.7 % (42.0-52.0); MEAN CORPUSCULAR VOLUME 88 FL (80-99); NEUTROPHILS % (AUTO) 66.5 % (45.0-75.0); PLATELET COUNT 347 K/UL (150-450); RED BLOOD COUNT 4.28 M/UL (4.70-6.10); RED CELL DISTRIBUTION WIDTH 15.2 % (11.6-14.8); WHITE BLOOD COUNT 14.4 K/UL (4.8-10.8)
[2018-12-29 06:35] LABS: ALANINE AMINOTRANSFERASE 13 U/L (12-78); ALBUMIN 2.2 G/DL (3.4-5.0); ALBUMIN/GLOBULIN RATIO 0.5 (1.0-2.7); ALKALINE PHOSPHATASE 99 U/L (46-116); ANION GAP 12 mmol/L (5-15); ASPARTATE AMINO TRANSFERASE 11 U/L (15-37); BILIRUBIN,TOTAL 0.4 MG/DL (0.2-1.0); BLOOD UREA NITROGEN 8 mg/dL (7-18); CALCIUM 8.6 MG/DL (8.5-10.1); CARBON DIOXIDE 18 MMOL/L (21-32); CHLORIDE 109 MMOL/L (98-107); CREATININE 0.8 MG/DL (0.55-1.30); PHOSPHORUS 4.7 MG/DL (2.5-4.9); POTASSIUM 5.3 MMOL/L (3.5-5.1); SODIUM 139 MMOL/L (136-145)
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
[2018-12-29] MEDS: Heparin 5000 units/ml inj SUBQ SCH ×2 (09:41→20:10)
[2018-12-29] MEDS ORDERED: Sodium Polystyrene Sulfonate 15gm Powder ORAL SCH (10:30)
[2018-12-29] MEDS: Vancomycin 1gm in D5W 275ml IVPB SCH (10:46)
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
--- NOTE | 2018-12-29 11:17 | Internal Med Progress Note ---
Subjective Date of Service: Dec 29, 2018 Physician Name LizzethJama Attending Physician Maximo Awad MD Current Medications Medications (Trade) Dose Ordered Sig/Thomas Route PRN Reason Start Time Stop Time Status Last Admin Dose Admin Albuterol/ Ipratropium (Albuterol/ Ipratropium) 3 ml Q4H PRN HHN Shortness of Breath 12/25/18 13:33 12/30/18 13:32 Chlorhexidine Gluconate (Megan-Hex 2%) 1 applic DAILY@2000 TOPIC 12/25/18 20:00 01/20/19 19:59 Dextrose 1,000 ml @ 50 mls/hr Q20H IV 12/25/18 13:33 01/24/19 13:32 12/28/18 21:38 Ertapenem 1 gm/ Sodium Chloride 55 ml @ 110 mls/hr Q24H IV 12/25/18 20:00 12/30/18 23:59 12/28/18 20:21 Famotidine (Pepcid) 20 mg BID ORAL 12/29/18 09:00 01/28/19 08:59 12/29/18 09:36 Heparin Sodium (Porcine) (Heparin 5000 units/ml) 5,000 units EVERY 12 HOURS SUBQ 12/25/18 21:00 01/20/19 20:59 12/29/18 09:41 Lorazepam (Ativan 2mg/ml 1ml) 2 mg Q2H PRN IV For Anxiety 12/25/18 13:34 01/01/19 13:33 12/28/18 05:50 Magnesium Sulfate 100 ml @ 100 mls/hr Q1H IVPB 12/29/18 11:00 12/29/18 12:59 Ondansetron HCl (Zofran) 4 mg Q6H PRN IVP Nausea & Vomiting 12/25/18 13:34 01/24/19 13:33 Polyethylene Glycol (Miralax) 17 gm DAILYPRN PRN ORAL Constipation 12/25/18 13:34 01/24/19 13:33 Vancomycin HCl (Vanco rx to dose) 1 ea DAILY PRN MISC PER RX PROTOCOL 12/26/18 09:00 01/20/19 19:14 Vancomycin HCl 1 gm/Dextrose 275 ml @ 183.708 mls/hr Q24H IVPB 12/28/18 10:30 01/02/19 10:29 12/29/18 10:46 Allergies: Coded Allergies: ACETAMINOPHEN (Verified Allergy, Unknown, 01/26/16) HYDROCODONE (Verified Allergy, Unknown, 01/26/16) ROS Limited/Unobtainable: No Constitutional: Reports: no symptoms HEENT: Reports: no symptoms Cardiovascular: Reports: no symptoms Respiratory: Reports: no symptoms Gastrointestinal/Abdominal: Reports: no symptoms Genitourinary: Reports: no symptoms Neurologic/Psychiatric: Reports: no symptoms Subjective 38 YO T-12 paraplegic admitted with respiratory failure. Now UTI and sepsis. Extubated 12/24/18. Cover for Int Med-DR Awad. Objective Last Vital Signs Date Time Temp Pulse Resp B/P (MAP) Pulse Ox O2 Delivery O2 Flow Rate FiO2 12/29/18 09:10 97.9 102 20 102/84 (90) 98 12/29/18 09:00 Room Air 12/28/18 20:16 21 12/25/18 12:00 2.0 Laboratory Tests Test 12/29/18 05:40 White Blood Count 14.4 K/UL (4.8-10.8) H Red Blood Count 4.28 M/UL (4.70-6.10) L Hemoglobin 12.0 G/DL (14.2-18.0) L Hematocrit 37.7 % (42.0-52.0) L Mean Corpuscular Volume 88 FL (80-99) Mean Corpuscular Hemoglobin 28.2 PG (27.0-31.0) Mean Corpuscular Hemoglobin Concent 31.9 G/DL (32.0-36.0) L Red Cell Distribution Width 15.2 % (11.6-14.8) H Platelet Count 347 K/UL (150-450) Mean Platelet Volume 6.1 FL (6.5-10.1) L Neutrophils (%) (Auto) 66.5 % (45.0-75.0) Lymphocytes (%) (Auto) 18.0 % (20.0-45.0) L Monocytes (%) (Auto) 8.0 % (1.0-10.0) Eosinophils (%) (Auto) 6.8 % (0.0-3.0) H Basophils (%) (Auto) 0.7 % (0.0-2.0) Erythrocyte Sedimentation Rate 91 MM/HR (0-15) H Sodium Level 139 MMOL/L (136-145) Potassium Level 5.3 MMOL/L (3.5-5.1) H Chloride Level 109 MMOL/L (98-107) H Carbon Dioxide Level 18 MMOL/L (21-32) L Anion Gap 12 mmol/L (5-15) Blood Urea Nitrogen 8 mg/dL (7-18) Creatinine 0.8 MG/DL (0.55-1.30) Estimat Glomerular Filtration Rate > 60 mL/min (>60) Glucose Level 93 MG/DL (74-106) Calcium Level 8.6 MG/DL (8.5-10.1) Phosphorus Level 4.7 MG/DL (2.5-4.9) Magnesium Level 1.6 MG/DL (1.8-2.4) L Total Bilirubin 0.4 MG/DL (0.2-1.0) Aspartate Amino Transf (AST/SGOT) 11 U/L (15-37) L Alanine Aminotransferase (ALT/SGPT) 13 U/L (12-78) Alkaline Phosphatase 99 U/L (46-116) C-Reactive Protein, Quantitative 11.8 mg/dL (0.00-0.90) H Total Protein 6.9 G/DL (6.4-8.2) Albumin 2.2 G/DL (3.4-5.0) L Globulin 4.7 g/dL Albumin/Globulin Ratio 0.5 (1.0-2.7) L Intake and Output 12/28/18 12/29/18 19:00 07:00 Intake Total 1607.416 ml 865 ml Output Total 1000 ml 1700 ml Balance 607.416 ml -835 ml Intake Oral 840 ml 360 ml IV Total 767.416 ml 505 ml Output Urine Total 1000 ml 1700 ml # Voids 2 # Bowel Movements 2 2 Objective PHYSICAL EXAMINATION: GENERAL: The patient is a well-developed and well-nourished male in moderate respiratory distress. HEENT: Eyes, pupils equal and responsive to light and accommodation. Extraocular movements are intact. NECK: Supple. No lymphadenopathy. CHEST: Coarse breath sounds bilaterally without wheezes or rales. CARDIOVASCULAR: Tachycardic, regular rhythm. S1 and S2 are normal without murmurs, rubs, or gallops. ABDOMEN: Soft, nontender, and nondistended with positive bowel sounds. No evidence of hepatosplenomegaly. No rebound or guarding noted. EXTREMITIES: Negative for clubbing, cyanosis, or edema. RECTAL: Not performed. GENITAL: Not performed. NEUROLOGIC: Unable to assess. Assessment/Plan Assessment/Plan ASSESSMENT: This is a 38-year-old male with: 1. Respiratory failure. 2. Urinary tract infection=citrobacter. 3. T12 paraplegia. 4. Neurogenic bladder with indwelling Dye. 5. Sepsis=MRSA 6. Sacral decubitus=E. Coli 7. Worsening leukocytosis TREATMENT: 1. Respiratory failure. A Pulmonary consultation has been obtained with Dr. Jose L Rubi. The patient is currently extubated 12/24/18 on Med/Surg. Tolerating room air. We will follow recommendations of Pulmonary. 2. Urinary tract infection. Urine culture=citrobacter. An Infectious Disease consultation has been obtained with Dr. Mcdonnell. Continue vancomycin and ertapenem per ID 3. T12 paraplegia. 4. Neurogenic bladder with indwelling Dye. Jama Moreau MD Dec 29, 2018 11:17
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
[2018-12-29] MEDS: Dyna-Hex 2% Top Sol 2oz TOPIC SCH (20:00)
[2018-12-29] MEDS: Ertapenem 1 GM in NS 55 ML IV SCH (20:09)
[2018-12-30] VITALS: BP 99/64
[2018-12-30 04:00] VITALS: BP 98/68
[2018-12-30 06:24] LABS: BASOPHILS % (AUTO) 0.8 % (0.0-2.0); EOSINOPHILS % (AUTO) 5.9 % (0.0-3.0); HEMATOCRIT 33.7 % (42.0-52.0); HEMOGLOBIN 10.8 G/DL (14.2-18.0); LYMPHOCYTES % (AUTO) 19.8 % (20.0-45.0); MEAN CORPUSCULAR VOLUME 87 FL (80-99); MONOCYTES % (AUTO) 9.9 % (1.0-10.0); NEUTROPHILS % (AUTO) 63.7 % (45.0-75.0); PLATELET COUNT 280 K/UL (150-450); RED BLOOD COUNT 3.85 M/UL (4.70-6.10); RED CELL DISTRIBUTION WIDTH 14.3 % (11.6-14.8); WHITE BLOOD COUNT 11.5 K/UL (4.8-10.8)
[2018-12-30 06:44] LABS: ANION GAP 7 mmol/L (5-15); BLOOD UREA NITROGEN 7 mg/dL (7-18); CALCIUM 8.1 MG/DL (8.5-10.1); CARBON DIOXIDE 22 MMOL/L (21-32); CHLORIDE 109 MMOL/L (98-107); CREATININE 0.8 MG/DL (0.55-1.30); POTASSIUM 3.4 MMOL/L (3.5-5.1); SODIUM 138 MMOL/L (136-145)
[2018-12-30 08:00] VITALS: BP 98/55
[2018-12-30] MEDS: Heparin 5000 units/ml inj SUBQ SCH ×2 (09:02→20:15)
[2018-12-30] MEDS: Vancomycin 1gm in D5W 275ml IVPB SCH (10:45)
[2018-12-30 12:00] VITALS: BP 100/51
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
[2018-12-30 16:00] VITALS: BP 98/65
[2018-12-30] MEDS ORDERED: NS 500ML ONE (16:58)
[2018-12-30] MEDS ORDERED: Tubing IV Secondary IV ONE (16:58)
[2018-12-30 20:00] VITALS: BP 100/62
[2018-12-30] MEDS: Dyna-Hex 2% Top Sol 2oz TOPIC SCH (20:00)
[2018-12-30] MEDS: Ertapenem 1 GM in NS 55 ML IV SCH (20:14)
[2018-12-30] MEDS: LORazepam Inj 2mg/ml 1ml IV PRN (22:39)
[2018-12-31] VITALS: BP 102/58
[2018-12-31 04:00] VITALS: BP 114/75
[2018-12-31] MEDS: LORazepam Inj 2mg/ml 1ml IV PRN (06:37)
[2018-12-31 08:00] VITALS: BP 140/82
[2018-12-31] MEDS: Heparin 5000 units/ml inj SUBQ SCH ×2 (09:46→20:59)
[2018-12-31] MEDS: Vancomycin 1gm in D5W 275ml IVPB SCH (09:49)
[2018-12-31 12:00] VITALS: BP 135/80
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
--- NOTE | 2018-12-31 14:13 | Diagnostic Imaging Report ---
Indications: Scrotal pain, abnormal white blood cell count Technique: Grayscale and duplex images of the scrotum Comparison: Findings:The right testicle has been removed. The left testicle measures 3 cm in length. It is diffusely heterogeneous in echogenicity, with mixed normal and large hypoechoic areas. It does demonstrate blood flow centrally, and appears to be somewhat hyperemic. There is a small varicocele noted. A calcification is noted within the epididymal head. Impression: Markedly heterogeneous left testicle. This appears to be hyperemic, indicative of orchitis. Recommend follow-up short interval sonography to ensure resolution of findings with an acute episode subsides Surgically absent right testicle Epididymal head calcification Small left varicocele
[2018-12-31] MEDS ORDERED: Lidocaine 1% Plain 30 ml INJ PRN (15:57)
[2018-12-31 16:00] VITALS: BP 124/71
[2018-12-31] MEDS ORDERED: Heparin1,000 units/500ml Premix(Conc:2 units/ml) IV PRN (16:00)
[2018-12-31 20:00] VITALS: BP 103/63
[2018-12-31] MEDS ORDERED: Dyna-Hex 2% Top Sol 2oz TOPIC SCH (20:00)
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
[2019-01-01] VITALS: BP 99/64
[2019-01-01 04:00] VITALS: BP 108/70
[2019-01-01 07:33] LABS: BASOPHILS % (AUTO) 0.7 % (0.0-2.0); EOSINOPHILS % (AUTO) 2.5 % (0.0-3.0); HEMATOCRIT 35.5 % (42.0-52.0); HEMOGLOBIN 11.6 G/DL (14.2-18.0); LYMPHOCYTES % (AUTO) 19.8 % (20.0-45.0); MEAN CORPUSCULAR VOLUME 86 FL (80-99); MONOCYTES % (AUTO) 6.4 % (1.0-10.0); NEUTROPHILS % (AUTO) 70.6 % (45.0-75.0); PLATELET COUNT 298 K/UL (150-450); RED BLOOD COUNT 4.13 M/UL (4.70-6.10); RED CELL DISTRIBUTION WIDTH 14.5 % (11.6-14.8); WHITE BLOOD COUNT 12.7 K/UL (4.8-10.8)
[2019-01-01 07:48] LABS: ALANINE AMINOTRANSFERASE 8 U/L (12-78); ALBUMIN/GLOBULIN RATIO 0.4 (1.0-2.7); ALKALINE PHOSPHATASE 94 U/L (46-116); ANION GAP 11 mmol/L (5-15); ASPARTATE AMINO TRANSFERASE 16 U/L (15-37); BILIRUBIN,TOTAL 0.4 MG/DL (0.2-1.0); BLOOD UREA NITROGEN 8 mg/dL (7-18); CALCIUM 8.7 MG/DL (8.5-10.1); CARBON DIOXIDE 20 MMOL/L (21-32); CHLORIDE 109 MMOL/L (98-107); CREATININE 0.8 MG/DL (0.55-1.30); PHOSPHORUS 4.3 MG/DL (2.5-4.9); POTASSIUM 4.3 MMOL/L (3.5-5.1); SODIUM 140 MMOL/L (136-145)
[2019-01-01 08:00] VITALS: BP 102/71
[2019-01-01] MEDS: Heparin 5000 units/ml inj SUBQ SCH (08:22)
[2019-01-01] MEDS: Vancomycin 1gm in D5W 275ml IVPB SCH (10:30)
[2019-01-01 12:00] VITALS: BP 123/68
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
[2019-01-01] MEDS ORDERED: VANCOMYCIN1 GM/2002 IV (14:04)
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
--- NOTE | 2019-01-01 14:07 | General Progress Note ---
Assessment/Plan Status: stable Assessment/Plan: Patient with chronic stage 4 sacral and left ischial pressure ulcers. Given the chronicity and the fact that bone is palpable, it would not be unreasonable to think he has osteomyelitis in one or both these areas. He is also suffering from protein malnutrition. Need to offload him q2 hr and optimize nutrition. Due to the periskin inflammation need to control the degree of moisture ion the periwound area. Will hold off on collagen dressing. Will pack the ulcer with dry kerlex and cover with alginate to extend over the periwound skin. Need to change daily. No surgical intervention necessary at this time. Not a flap candidate until his nutrition is normalized and periwound skin needs to be in better condition. Subjective Date patient seen: Jan 01, 2019 Time patient seen: 14:00 Constitutional: Reports: no symptoms HEENT: Reports: no symptoms Cardiovascular: Reports: no symptoms Respiratory: Reports: no symptoms Gastrointestinal/Abdominal: Reports: diarrhea Genitourinary: Reports: no symptoms Allergies: Coded Allergies: ACETAMINOPHEN (Verified Allergy, Unknown, 01/26/16) HYDROCODONE (Verified Allergy, Unknown, 01/26/16) Subjective Follow up evaluation on patient with stage 4 sacral pressure ulcer. He was transferred from ICU several days ago. He is receiving dressing changes daily. Continues to have diarrhea and has rectal tube in place. WBC is trending down with minor fluctuations. Objective Last 24 Hour Vital Signs Date Time Temp Pulse Resp B/P (MAP) Pulse Ox O2 Delivery O2 Flow Rate FiO2 01/01/19 09:00 Nasal Cannula 2.0 01/01/19 08:00 97.6 98 18 102/71 (81) 97 01/01/19 04:00 98.4 100 20 108/70 (83) 96 01/01/19 00:00 98.0 99 20 99/64 (76) 95 12/31/18 21:00 Nasal Cannula 2.0 12/31/18 20:00 98.9 108 20 103/63 (76) 97 12/31/18 19:33 96 Room Air 21 12/31/18 16:00 98.5 105 17 124/71 (88) 98 Intake and Output 12/31/18 01/01/19 19:00 07:00 Intake Total 400 ml 180 ml Output Total 600 ml 300 ml Balance -200 ml -120 ml Intake Oral 400 ml 180 ml Output Urine Total 600 ml 300 ml # Bowel Movements 2 Laboratory Tests 01/01/19 06:40: White Blood Count 12.7H, Red Blood Count 4.13L, Hemoglobin 11.6L, Hematocrit 35.5L, Mean Corpuscular Volume 86, Mean Corpuscular Hemoglobin 28.1, Mean Corpuscular Hemoglobin Concent 32.6, Red Cell Distribution Width 14.5, Platelet Count 298, Mean Platelet Volume 5.9L, Neutrophils (%) (Auto) 70.6, Lymphocytes ( %) (Auto) 19.8L, Monocytes (%) (Auto) 6.4, Eosinophils (%) (Auto) 2.5, Basophils (%) (Auto) 0.7, Erythrocyte Sedimentation Rate 46H, Sodium Level 140, Potassium Level 4.3, Chloride Level 109H, Carbon Dioxide Level 20L, Anion Gap 11 , Blood Urea Nitrogen 8, Creatinine 0.8, Estimat Glomerular Filtration Rate > 60 , Glucose Level 79, Calcium Level 8.7, Phosphorus Level 4.3, Magnesium Level 1.8 , Total Bilirubin 0.4, Aspartate Amino Transf (AST/SGOT) 16, Alanine Aminotransferase (ALT/SGPT) 8L, Alkaline Phosphatase 94, C-Reactive Protein, Quantitative 18.6H, Total Protein 6.6, Albumin 2.0L, Globulin 4.6, Albumin/ Globulin Ratio 0.4L Height (Feet): 5 Height (Inches): 6.00 Weight (Pounds): 172 General Appearance: no apparent distress, alert Respiratory/Chest: no respiratory distress Edema: trace edema Skin: other - Stage 4 sacral pressure ulcer. Fibrotic debris and slough at the base with less than 30% granualtion base. Periskin is inflammed due to moisture but no warmth and no crepitus. Jayden Byrd MD Jan 01, 2019 14:07
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
[2019-01-01 16:00] VITALS: BP 106/63
[2019-01-01] MEDS ORDERED: LEVAQUIN750 MG ORAL (17:26)
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
== END 2019-01-01 19:30 | DRG 871 ==
LOC: EDBD 13:10 → EMR 13:20 → ICU 14:08 → EDBEDREQ 17:22 → ICU 18:53 → 4E 12-25 13:51
PROC: 02HV33Z Insertion of Infusion Device into Superior Vena Cava, Percutaneous Approach (ICD-10-PCS; principal; 2018-12-21)
PROC: B548ZZA Ultrasonography of Superior Vena Cava, Guidance (ICD-10-PCS; principal; 2018-12-21)
PROC: 5A1945Z Respiratory Ventilation, 24-96 Consecutive Hours (ICD-10-PCS; principal; 2018-12-21)
PROC: 0BH17EZ Insertion of Endotracheal Airway into Trachea, Via Natural or Artificial Opening (ICD-10-PCS; principal; 2018-12-21)
DX: A41.02 Sepsis due to Methicillin resistant Staphylococcus aureus (principal); L89.154 Pressure ulcer of sacral region, stage 4; L89.224 Pressure ulcer of left hip, stage 4; R65.21 Severe sepsis with septic shock; J96.01 Acute respiratory failure with hypoxia; G82.20 Paraplegia, unspecified; N39.0 Urinary tract infection, site not specified; I42.9 Cardiomyopathy, unspecified; E46 Unspecified protein-calorie malnutrition; S24.104S Unspecified injury at T11-T12 level of thoracic spinal cord, sequela; X93.XXXS Assault by handgun discharge, sequela; L89.612 Pressure ulcer of right heel, stage 2; B96.20 Unspecified Escherichia coli [E. coli] as the cause of diseases classified elsewhere; R55 Syncope and collapse; N31.9 Neuromuscular dysfunction of bladder, unspecified; G89.4 Chronic pain syndrome; G40.909 Epilepsy, unspecified, not intractable, without status epilepticus; I10 Essential (primary) hypertension; Z93.1 Gastrostomy status; F43.10 Post-traumatic stress disorder, unspecified; F32.9 Major depressive disorder, single episode, unspecified; F41.9 Anxiety disorder, unspecified; K21.9 Gastro-esophageal reflux disease without esophagitis; K31.84 Gastroparesis; Z68.27 Body mass index [BMI] 27.0-27.9, adult; E87.6 Hypokalemia; E83.42 Hypomagnesemia; E83.39 Other disorders of phosphorus metabolism
CPT/HCPCS: 31500; 36415; 36569; 36600; 70450; 71045; 74018; 76700; 76870; 76937; 80048; 80053; 80061; 80076; 80150; 80202; 80307; 81003; 82043; 82140; 82164; 82248; 82533; 82550; 82553; 82607; 82728; 82746; 82803; 82977; 83036; 83540; 83550; 83605; 83690; 83735; 83880; 83935; 84100; 84300; 84443; 84484; 84550; 85007; 85025; 85610; 85651; 85730; 86140; 86710; 87040; 87070; 87081; 87086; 87181; 87205; 87324; 89050; 93005; 93306; 94002; 94003; 94664; 96365; 96366; 96367; 96368; 99291; J2310; J7030; J7620; J8499